=== PATIENT | male | born 1945 | race Caucasian/White ===

== ENCOUNTER 2017-06-30 09:45 | Inpatient (IN) | payer MEDICARE ==
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
[2017-06-30 10:46] LABS: Basophils # (A) 0.1 k/uL (0-0.2); Basophils % (A) 1 %; Eosinophils # (A) 0.5 k/uL (0-0.7); Eosinophils % (A) 5 %; HCT 34.8 % (39.0-53.0); HGB 11.7 gm/dL (13.0-17.5); Lymphocytes # (A) 0.9 k/uL (1.0-4.8); Lymphocytes % (A) 9 %; MCH 26.1 pg (25.0-35.0); MCHC 33.7 g/dL (31.0-37.0); MCV 77.4 fL (80.0-100.0); Mean Platelet Volume 8.5; Monocytes # (A) 0.7 k/uL (0-1.0); Monocytes % (A) 7 %; Neutrophils # (A) 7.9 k/uL (1.3-7.7); Neutrophils % (A) 78 %; Platelet Count 173 k/uL (150-450); Poikilocytosis Slight; RDW 15.3 % (11.5-15.5); WBC 10.2 k/uL (3.8-10.6)
[2017-06-30 10:57] LABS: Albumin 3.2 g/dL (3.5-5.0); Calcium 8.5 mg/dL (8.4-10.2); Potassium 3.2 mmol/L (3.5-5.1); Total Bilirubin 0.4 mg/dL (0.2-1.3); Total Protein 5.6 g/dL (6.3-8.2)
[2017-06-30 11:06] LABS: D-Dimer 0.51 mg/L FEU (<0.60)
--- NOTE | 2017-06-30 11:06 | XR ---
EXAMINATION TYPE: XR chest 2V DATE OF EXAM: 06/30/2017 COMPARISON: 08/16/2015 INDICATION: Chest pain TECHNIQUE: Frontal and lateral views of the chest are obtained. FINDINGS: The heart size is normal. The pulmonary vasculature is normal. Minimal blunting left costophrenic angle may be present. Some atelectasis or possibly minimal fluid m ay be present.. IMPRESSION: 1. Blunting the left costophrenic angle. Correlate for atelectasis versus small left pleural effusion .
[2017-06-30 11:10] LABS: INR 1.9 (<1.2); Partial Thromboplastin Time 33.4 sec (22.0-30.0); Prothrombin Time 17.5 sec (9.0-12.0)
[2017-06-30 11:29] LABS: Creatine Kinase MB 3.2 ng/mL (0.0-2.4); Troponin I 0.248 ng/mL (0.000-0.034)
[2017-06-30] MEDS ORDERED: FUROSEMIDE 10 MG/ML 2 ML VIAL IV ONE (11:43)
[2017-06-30] MEDS ORDERED: NITROGLYCERIN OINT 1 INCH/GM PACKET TOPICAL STA (11:43)
--- NOTE | 2017-06-30 12:03 | US ---
EXAMINATION TYPE: US venous doppler duplex LE RT DATE OF EXAM: 06/30/2017 11:54 AM COMPARISON: NONE CLINICAL HISTORY: Pain. Right toe amputated x 1.5 weeks ago. SOB. SIDE PERFORMED: Right TECHNIQUE: The lower extremity deep venous system is examined utilizing real time linear array sonog christoph with graded compression, doppler sonography and color-flow sonography. VESSELS IMAGED: External Iliac Vein (EIV) Common Femoral Vein Deep Femoral Vein Greater Saphenous Vein * Femoral Vein Popliteal Vein Small Saphenous Vein * Proximal Calf Veins (* superficial vessels) Right Leg: Negative for DVT IMPRESSION: 1. Right lower extremity negative for deep venous thrombosis by ultrasound.
[2017-06-30] MEDS ORDERED: SODIUM CHLORIDE 0.9% 1,000 ML IV ONE (12:43)
[2017-06-30] MEDS ORDERED: NALOXONE 0.4 MG/ML 1 ML VIAL IV PRN (12:43)
[2017-06-30] MEDS ORDERED: ASPIRIN 81 MG PO STA (12:46)
[2017-06-30 13:49] LABS: Glucose,Whole Blood 124 mg/dL (75-99)
[2017-06-30] MEDS: NITROGLYCERIN OINT 1 INCH/GM PACKET TOPICAL SCH ×2 (16:47→22:58)
[2017-06-30] MEDS: FUROSEMIDE 10 MG/ML 2 ML VIAL IV SCH ×2 (16:47→22:58)
[2017-06-30 16:52] LABS: Glucose,Whole Blood 203 mg/dL (75-99)
[2017-06-30 17:33] LABS: Creatine Kinase MB 3.2 ng/mL (0.0-2.4); Troponin I 0.308 ng/mL (0.000-0.034)
[2017-06-30] MEDS ORDERED: HYDROcodone/APAP 5-325MG 1 EACH TAB PO PRN (17:44)
[2017-06-30] MEDS: WARFARIN 1.25 MG TAB PO SCH (18:04)
[2017-06-30] MEDS: INSULIN ASPART 100 UNIT/ML 1 ML 10 ML VIAL SQ SCH ×2 (18:04→22:55)
[2017-06-30] MEDS ORDERED: ARTIFICIAL TEARS-HYPROMELLOSE DROPS 15 ML BTL BOTH EYES PRN (19:34)
[2017-06-30] MEDS ORDERED: TAZOBACTAM IVPB SCH (19:45)
[2017-06-30] MEDS ORDERED: PIPERACILLIN SODIUM IVPB SCH (19:45)
[2017-06-30 21:10] LABS: Glucose,Whole Blood 241 mg/dL (75-99)
[2017-06-30] MEDS: PIPERACILLIN-TAZOBACTAM 3.375 GM in DEXTROSE/WATER 1 50ML.BAG IVPB SCH (21:10)
[2017-06-30] MEDS ORDERED: LORazepam 0.5 MG TAB PO STA (21:30)
--- NOTE | 2017-06-30 22:19 | HP ---
HISTORY AND PHYSICAL CHIEF COMPLAINTS: Shortness of breath as well as leg swelling. HISTORY OF PRESENT ILLNESS: This 71-year-old gentleman with a past medical history of atrial fibrillation, history of CAD, CABG, stent, history of diabetes, hypertension, hyperlipidemia, being followed by Dr. Dodd in [facility], recently had a big toe amputation on the right side at [facility]. Subsequently the patient had a PICC line. The patient is still on IV Zosyn. Currently the patient is complaining of increasing shortness of breath and gaining weight. The patient gained almost 10 pounds of weight in the past couple of weeks to 212 pounds, according to him. Because of increasing difficulty, the patient came to [facility] and was admitted for evaluation and treatment. Initial evaluation the patient was started on Lasix. The patient was admitted for further evaluation and treatment. There is no history of any fever, rigor or chills. No history of headache, loss of consciousness, seizures. PAST MEDICAL HISTORY: 1. History of CAD, CABG. 2. History of atrial fibrillation. 3. History of hypertension. 4. Hyperlipidemia. 5. History of myocardial infarction. 6. History of pneumonia. HOME MEDICATIONS: 1. Norvasc 10 mg p.o. daily. 2. Coumadin 3.75 mg Wednesday, Wednesday, Wednesday, , Wednesday; 2.5 mg Wednesday and Wednesday. 3. Systane 1 drop daily p.r.n. 4. Zosyn 4.5 grams IV q.8. 5. Lantus 30 units subcutaneously daily. 6. NovoLog before meals t.i.d. 7. [place] 5 mg q.6 p.r.n. 8. Vasotec 20 mg p.o. daily. 9. Lipitor 80 mg p.o. daily. 10.Ecotrin 81 mg p.o. daily. 11.Cordarone 100 mg p.o. daily. ALLERGIES: 1. CIPRO. 2. CLINDAMYCIN. 3. BACTRIM. FAMILY HISTORY: History of dementia, diabetes mellitus. SOCIAL HISTORY: Previous history of smoking. No current smoking or alcohol intake. REVIEW OF SYSTEMS: ENT: No diminished hearing. No diminished vision. CARDIOVASCULAR SYSTEM: As mentioned earlier. RESPIRATORY SYSTEM: As mentioned earlier. GI: No nausea, vomiting. : No dysuria or retention. NERVOUS SYSTEM: No numbness, weakness. ALLERGY/IMMUNOLOGY: No asthma, hayfever. MUSCULOSKELETAL: As mentioned earlier. HEMATOLOGY/ONCOLOGY: No history of anemia. ENDOCRINE: As mentioned earlier. CONSTITUTIONAL: As mentioned earlier. DERMATOLOGY: Negative. RHEUMATOLOGY: Negative. PSYCHIATRY: As mentioned earlier. PHYSICAL EXAMINATION: Patient alert, oriented x3. The pulse is 78, blood pressure 149/75, respiration 18, temperature normal, pulse ox 96% on room air. HEENT: Conjunctivae normal. Oral mucosa moist. NECK: Jugular venous distention at the root of the neck. CARDIOVASCULAR SYSTEM: S1, S2 muffled. No S3. No S4. RESPIRATORY SYSTEM: Breath sounds diminished at the bases. A few scattered rhonchi. No crackles. ABDOMEN: Soft, non-tender, obese. No mass palpable. LEGS: No edema. No swelling. Status post right big toe amputation. NERVOUS SYSTEM: Higher functions as mentioned earlier. Moves all 4 limbs. No focal motor or sensory deficit. LYMPHATICS: No lymph node palpable in neck, axillae or groin. SKIN: No ulcer, rash, bleeding. PICC line present on the left upper arm. LABS: WBC 10.2, hemoglobin 11.7. INR is 1.9 and creatinine is 1.88. NT proBNP is 4820. ASSESSMENT: 1. Congestive heart failure, acute exacerbation; ejection fraction unknown. 2. History of osteomyelitis of the toe. 3. Troponin 0.308, possible acute [id number] myocardial infarction. 4. Increased creatinine with chronic kidney disease, stage III. 5. History of recent right big toe amputation. 6. Status post left upper arm PICC line. 7. Coumadin monitoring. 8. Hypokalemia, mild. 9. Anemia, normocytic, chronic. 10.Atrial fibrillation. 11.History of coronary artery disease. 12.History of diabetes mellitus, type 2. 13.Hypertension. 14.Hyperlipidemia. 15.History of pneumonia. 16.Peripheral neuropathy, bilateral feet. 17.History of diverticular disease. 18.History of nicotine dependence. 19.FULL CODE. RECOMMENDATIONS AND DISCUSSION: In this 71-year-old gentleman who presented with multiple complex medical issues., we will we will monitor the patient closely, continue the current medications, continue with symptomatic treatment. I would recommend resuming the IV antibiotics, PICC line and IV diuretics. Monitor fluid/electrolyte balance closely. I would also recommend cardiology and nephrology consultations. I would recommend close followup at [facility] regarding the amputation of the big toe. Otherwise, prognosis guarded. Further recommendations to follow. A copy of this dictation is being forwarded to Dr. Dodd, who is the primary physician. MMRENETTAL / CANDICEN: [id number] / MTDD
[2017-06-30 22:58] LABS: Creatine Kinase MB 3.3 ng/mL (0.0-2.4); Troponin I 0.252 ng/mL (0.000-0.034)
[2017-07-01] MEDS: PIPERACILLIN-TAZOBACTAM 3.375 GM in DEXTROSE/WATER 1 50ML.BAG IVPB SCH ×3 (04:27→21:04)
[2017-07-01] MEDS: NITROGLYCERIN OINT 1 INCH/GM PACKET TOPICAL SCH ×3 (05:02→15:37)
[2017-07-01 06:04] LABS: Glucose,Whole Blood 237 mg/dL (75-99)
[2017-07-01] MEDS: INSULIN ASPART 100 UNIT/ML 1 ML 10 ML VIAL SQ SCH ×4 (06:09→21:04)
[2017-07-01 06:27] LABS: Basophils # (A) 0.1 k/uL (0-0.2); Basophils % (A) 1 %; Eosinophils # (A) 0.4 k/uL (0-0.7); Eosinophils % (A) 5 %; HGB 11.9 gm/dL (13.0-17.5); Lymphocytes % (A) 11 %; MCH 26.2 pg (25.0-35.0); MCHC 34.1 g/dL (31.0-37.0); MCV 76.7 fL (80.0-100.0); Mean Platelet Volume 8.4; Microcytosis Slight; Monocytes # (A) 0.7 k/uL (0-1.0); Monocytes % (A) 8 %; Neutrophils # (A) 6.4 k/uL (1.3-7.7); Neutrophils % (A) 74 %; Platelet Count 186 k/uL (150-450); Poikilocytosis Slight; RBC 4.56 m/uL (4.30-5.90); RDW 15.2 % (11.5-15.5); WBC 8.7 k/uL (3.8-10.6)
[2017-07-01 06:28] LABS: INR 2.1 (<1.2); Prothrombin Time 18.7 sec (9.0-12.0)
[2017-07-01 06:52] LABS: Calcium 8.7 mg/dL (8.4-10.2); Potassium 3.3 mmol/L (3.5-5.1)
[2017-07-01] MEDS: INSULIN DETEMIR 100 UNIT/ML 10 ML VIAL SQ SCH (08:24)
[2017-07-01] MEDS: FUROSEMIDE 10 MG/ML 2 ML VIAL IV SCH (08:25)
[2017-07-01] MEDS: ASPIRIN 81 MG PO SCH (08:25)
[2017-07-01] MEDS: ATORVASTATIN 80 MG TAB PO SCH (08:25)
[2017-07-01] MEDS: amLODIPine 10 MG TAB PO SCH (08:25)
[2017-07-01] MEDS: LISINOPRIL 20 MG TAB PO SCH (08:25)
[2017-07-01] MEDS: AMIODARONE 100 MG TAB PO SCH (08:25)
[2017-07-01] MEDS ORDERED: ASPIRIN 325 MG TAB PO SCH (09:00)
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
[2017-07-01 11:31] VITALS: BMI 31.1
[2017-07-01 12:09] LABS: Glucose,Whole Blood 218 mg/dL (75-99)
[2017-07-01] MEDS: MULTIVITAMINS, THERA 1 EACH TAB PO SCH (12:23)
[2017-07-01 12:30] LABS: Hemoglobin A1C 7.3 % (4.0-6.0)
--- NOTE | 2017-07-01 14:14 | CONS ---
CONSULTATION DATE OF CONSULTATION: 07/01/2017. REASON FOR CONSULT: Renal failure. HISTORY OF PRESENT ILLNESS: Patient is a 71-year-old male who was admitted to the hospital with complaints of shortness of breath and worsening lower extremity edema, which had been going on over the past 2-3 days. The patient stated he had put on a lot of weight over the last 2 weeks. Pt also states he recently had trimming of nails on R foot by podiatry and developed increased redness around his toes. He denies any fever, chills, nausea, vomiting. He did have some cough. No abdominal pain or diarrhea. 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 He is baseline creatinine is about 1.6 mg/dL. He is being diuresed. He is maintained on Lasix 20 mg IV q.8 hours. He states he is feeling better. He is also maintained on lisinopril 40 mg daily. Patient is voiding well. He is going on his own. PAST MEDICAL HISTORY: CKD stage III secondary to nephrosclerosis, hypertension, atrial fibrillation, coronary artery disease, history of VT, history of pneumonia, hyperlipidemia. MEDICATIONS: Medications at home prior to admission included Norvasc, Coumadin, Zosyn, insulin, [place], Vasotec, Lipitor, Ecotrin, Cordarone. ALLERGIES: Include Cipro, clindamycin, Bactrim. FAMILY HISTORY: Noncontributory. SOCIAL HISTORY: Patient is a former smoker. No history of drug abuse or alcohol abuse. REVIEW OF SYSTEMS: As per HPI. Other systems negative. EXAMINATION: Patient is comfortable, awake, not in any acute distress. Blood pressure is 132 /62, heart rate 80 per minute. He is afebrile. Examination of the heart. S1, S2. Examination lungs: Decreased breath sounds bases. Bilateral basal crackles are heard. Abdomen is soft, nontender. Examination lower extremity shows edema 1+ bilaterally. MANAGER PROVIDER RELATIONS exam is grossly intact. Patient moving all 4 extremities. LAB: Show sodium 143, potassium 3.3, chloride 104, BUN 22, serum creatinine 1.96. Troponin was 0.252. Hemoglobin 11.9 g/dL. We do not have her UA. Chest x-ray shows left pleural effusion. ASSESSMENT: 1. Acute kidney injury mainly cardiorenal, maintained on Lasix 20 mg IV q.8 hours. I will change it to 40 mg q.12 hours. Repeat labs in a.m. The patient is maintained on a good dose of FRAN inhibitors. His blood pressure is not too low and we can continue the same dose of lisinopril for now. As outpatient, patient has been taken off of FRAN inhibitors secondary to hypotension and acute kidney injury. 2. Chronic kidney disease stage III secondary to nephrosclerosis. Baseline creatinine about 1.6 mg/dL. 3. History of atrial fibrillation maintained on anticoagulation with controlled ventricular response. 4. Coronary artery disease, history of coronary artery bypass surgery. 5. Cellulitis, right foot, maintained on IV antibiotics in the form on Zosyn. PLAN: Continue the IV antibiotics. Change Lasix to 40 IV q.12h. Repeat labs in a.m. Check urinalysis and may continue with the FRAN inhibitors for now. MMODL / IJN: [id number] / MTDD
--- NOTE | 2017-07-01 15:14 | PN ---
PROGRESS NOTE DATE OF SERVICE: 07/01/2017 INTERVAL HISTORY: This is a 71-year-old gentleman who was admitted with shortness of breath with CHF acute exacerbation, also had a history of toe osteomyelitis and surgery at recently. The patient also had renal failure. Nephrology and Cardiology are following the patient closely. Amiodarone is being reduced by 200 mg daily by Cardiology. The patient is on IV diuretics and IV antibiotics. No chest pain. No palpitations. No fever. REVIEW OF SYSTEMS: CARDIOVASCULAR: No angina or palpitation. RESPIRATION: As mentioned earlier. GI: As mentioned earlier. : As mentioned earlier. NERVOUS SYSTEM: No focal deficits. CURRENT MEDICATIONS ARE REVIEWED AND INCLUDE: 1. [place] 5 mg q.8 p.r.n. 2. Cordarone 100 mg p.o. daily. 3. Norvasc 10 mg p.o. daily. 4. Aspirin 81 mg. 5. Lipitor 80 mg. 6. Lasix 40 mg IV b.i.d. 7. NovoLog a.c. and at bedtime. 8. Levemir 30 subcu daily. 9. Zestril 40 mg daily. 10.Multivitamin 1 p.o. daily. 11.Narcan. 12.Nitro-Bid. 13.Zosyn 3.37 IV q.8. 14.Coumadin 3.7 and 2.5 mg. PHYSICAL EXAM: Patient is alert and oriented x3. Pulse 80, blood pressure is 130/62, respiration 18, temperature is 96 degrees, pulse ox 92% on room air. HEENT: Conjunctivae normal. NECK: No jugular venous dsitension. CARDIOVASCULAR SYSTEM: S1, S2, muffled. RESPIRATORY: Breath sounds diminished at the bases, a few scattered rhonchi, no crackles. Abdomen is soft, nontender. No mass. LEGS: Bilateral leg edema, right foot status post surgery recently. LABS: WBC 8.6, hemoglobin is 11. INR is 2.1. Sodium 143, potassium 3.3. Troponin 0.252. ASSESSMENT: 1. Congestive hear failure acute exacerbation with ejection fraction unknown. 2. History of osteomyelitis of the right big toe, status post amputation. 3. Troponin 0.302, possible acute non-ST elevation myocardial infarction. 4. Increased creatinine with chronic kidney stage III. 5. History of recent right big toe amputation at . 6. Status post left arm PICC line. 7. Coumadin monitoring. 8. Hypokalemia, mild. 9. Anemia normocytic, chronic. 10.Atrial fibrillation. 11.History of coronary artery disease. 12.History of diabetes mellitus type 2. 13.Hypertension. 14.Hyperlipidemia. 15.History of pneumonia. 16.History of peripheral neuropathy of bilateral feet. 17.History of diverticular disease. 18.History of nicotine dependence. 19.FULL CODE. RECOMMENDATION AND DISCUSSION: Recommend to continue current medication, continue with the monitoring and symptomatic treatment. At this time I would recommend continue with the diuretic and IV antibiotics. I would also recommend Infectious Disease evaluation and as well as vascular surgery evaluation with Dr. Looney. Nephrology, and Cardiology all will be following the patient closely. As mentioned earlier, creatinine is 1.96 today. This is rather stable and INR is 2.1. Will monitor the blood sugars, also. Further recommendations to follow. MMODL / IJN: [id number] /
[2017-07-01 15:21] LABS: Appearance,Urine Clear (Clear); Bacteria,Urine Rare /hpf; Bilirubin,Urine Negative (Negative); Blood,Urine Negative (Negative); Color,Urine Yellow; Glucose,Urine (UA) 1+ (Negative); Hyaline Casts,Urine 1 /lpf (0-2); Ketones,Urine Negative (Negative); Leukocyte Esterase,Urine Negative (Negative); Nitrite,Urine Negative (Negative); PH, Urine 5.5 (5.0-8.0); Protein,Urine 2+ (Negative); RBC,Urine 1 /hpf (0-5); Specific Gravity,Urine 1.012 (1.001-1.035); Urobilinogen,Urine <2.0 mg/dL (<2.0); WBC,Urine 4 /hpf (0-5)
[2017-07-01 16:11] LABS: Glucose,Whole Blood 269 mg/dL (75-99)
[2017-07-01] MEDS: WARFARIN 1.25 MG TAB PO SCH (17:03)
[2017-07-01] MEDS: COLLAGENASE 250 UNIT/GM OINTMENT 30 GM TUBE TOPICAL SCH (17:04)
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
--- NOTE | 2017-07-01 17:52 | ECHOF ---
Referral Reason:chf MEASUREMENTS -------- HEIGHT: 175.3 cm WEIGHT: 95.3 kg BP: 147/84 RVIDd: 3.5 cm (< 3.3) IVSd: 1.1 cm (0.6 - 1.1) LVIDd: 5.0 cm (3.9 - 5.3) LVPWd: 1.1 cm (0.6 - 1.1) IVSs: 1.3 cm LVIDs: 4.0 cm LVPWs: 1.3 cm LAESV Index (A-L): 27.61 ml/m Ao Diam: 3.6 cm (2.0 - 3.7) AV Cusp: 1.4 cm (1.5 - 2.6) LA Diam: 4.1 cm (2.7 - 3.8) EPSS: 0.9 cm MV E Shabbir: 1.11 m/s MV DecT: 224 ms MV A Shabbir: 1.44 m/s MV E/A Ratio: 0.77 AV maxP.72 mmHg AV meanP.97 mmHg RAP: 5.00 mmHg RVSP: 20.64 mmHg MV EF SLOPE: 75.75 mm/s (70 - 150) MV EXCURSION: 1.44 cm (> 18.000) FINDINGS -------- Sinus rhythm. This was a technically difficult study with suboptimal views. The left ventricular size is normal. There is mild concentric left ventricular hypertrophy. Overa ll left ventricular systolic function is low-normal with, an EF between 50 - 55 %. The right ventricle is mildly enlarged. Normal LA size by volume 22+/-6 ml/m2. The right atrium is normal in size. 5ml of Lumason was utilized for enhancement of images. Aortic valve is trileaflet and is mildly thickened. There is no evidence of aortic regurgitation. There is no evidence of aortic stenosis. The mitral valve leaflets are mildly thickened. Mild mitral annular calcification present. There is trace to mild mitral regurgitation. Trace tricuspid regurgitation present. Right ventricular systolic pressure is normal at < 35 mmHg. There is no evidence of pulmonary hypertension. Trace/mild (physiologic) pulmonic regurgitation. The aortic root is borderline dilated up to 3.7 cm. Normal inferior vena cava with normal inspiratory collapse consistent with estimated right atrial pre ssure of 5 mmHg. There is a trivial pericardial effusion present. CONCLUSIONS -------- 1. Sinus rhythm. 2. This was a technically difficult study with suboptimal views. 3. The left ventricular size is normal. 4. There is mild concentric left ventricular hypertrophy. 5. Overall left ventricular systolic function is low-normal with, an EF between 50 - 55 %. 6. The right ventricle is mildly enlarged. 7. Normal LA size by volume 22+/-6 ml/m2. 8. 5ml of Lumason was utilized for enhancement of images. 9. Aortic valve is trileaflet and is mildly thickened. 10. The mitral valve leaflets are mildly thickened. 11. Mild mitral annular calcification present. 12. There is trace to mild mitral regurgitation. 13. Trace tricuspid regurgitation present. 14. Right ventricular systolic pressure is normal at < 35 mmHg. 15. There is no evidence of pulmonary hypertension. 16. Trace/mild (physiologic) pulmonic regurgitation. 17. The aortic root is borderline dilated up to 3.7 cm. 18. There is a trivial pericardial effusion present. PEOPLE MANAGER: Ashok Howard RDCS
[2017-07-01 20:51] LABS: Glucose,Whole Blood 247 mg/dL (75-99)
[2017-07-01] MEDS ORDERED: LORazepam 0.5 MG TAB PO STA (20:59)
[2017-07-01] MEDS: FUROSEMIDE 10 MG/ML 4 ML VIAL IV SCH (21:11)
[2017-07-01] MEDS: ERTAPENEM 1 GM in SODIUM CHLORIDE 0.9% 50 ML IVPB SCH (21:54)
[2017-07-01 22:07] LABS: Calcium 8.7 mg/dL (8.4-10.2); Magnesium 1.9 mg/dL (1.6-2.3)
[2017-07-01] MEDS ORDERED: POTASSIUM CHLORIDE ER 20 MEQ TAB.ER PO STA (22:29)
[2017-07-01] MEDS ORDERED: POTASSIUM CHLORIDE 20 MEQ in SODIUM CHLORIDE 0.9% 100 ML IV ONE (23:00)
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
[2017-07-02] MEDS ORDERED: POTASSIUM CHLORIDE 20 MEQ in WATER FOR INJECTION 1 100ML.BAG IVPB ONE (00:30)
[2017-07-02] MEDS: NITROGLYCERIN OINT 1 INCH/GM PACKET TOPICAL SCH ×5 (01:24→22:48)
[2017-07-02 06:03] LABS: Basophils # (A) 0.1 k/uL (0-0.2); Basophils % (A) 1 %; Eosinophils # (A) 0.6 k/uL (0-0.7); Eosinophils % (A) 7 %; HCT 36.8 % (39.0-53.0); HGB 12.1 gm/dL (13.0-17.5); Lymphocytes % (A) 12 %; MCH 25.7 pg (25.0-35.0); MCHC 32.8 g/dL (31.0-37.0); MCV 78.3 fL (80.0-100.0); Mean Platelet Volume 8.3; Monocytes # (A) 0.7 k/uL (0-1.0); Monocytes % (A) 8 %; Neutrophils # (A) 6.1 k/uL (1.3-7.7); Neutrophils % (A) 72 %; Platelet Count 191 k/uL (150-450); Poikilocytosis Slight; RBC 4.69 m/uL (4.30-5.90); RDW 15.4 % (11.5-15.5); WBC 8.5 k/uL (3.8-10.6)
[2017-07-02 06:06] LABS: INR 2.2 (<1.2); Prothrombin Time 20.2 sec (9.0-12.0)
[2017-07-02 06:24] LABS: Potassium 3.9 mmol/L (3.5-5.1)
[2017-07-02] MEDS: INSULIN ASPART 100 UNIT/ML 1 ML 10 ML VIAL SQ SCH ×4 (06:39→21:19)
[2017-07-02 06:41] LABS: Glucose,Whole Blood 210 mg/dL (75-99)
[2017-07-02] MEDS: INSULIN DETEMIR 100 UNIT/ML 10 ML VIAL SQ SCH (09:25)
[2017-07-02] MEDS: amLODIPine 10 MG TAB PO SCH (09:26)
[2017-07-02] MEDS: FUROSEMIDE 10 MG/ML 4 ML VIAL IV SCH (09:26)
[2017-07-02] MEDS: ASPIRIN 81 MG PO SCH (09:26)
[2017-07-02] MEDS: LISINOPRIL 20 MG TAB PO SCH (09:26)
[2017-07-02] MEDS: ATORVASTATIN 80 MG TAB PO SCH (09:26)
[2017-07-02] MEDS: AMIODARONE 100 MG TAB PO SCH (09:26)
--- NOTE | 2017-07-02 09:41 | P.PN ---
Subjective Patient is doing well from a cardiac standpoint he denies any chest discomfort no undue shortness of breath no dizziness or lightheadedness he sitting up comfortably in bed His 2-D echo report was reviewed and shows mild LVH with preserved LV systolic function On examination blood pressure 148/79 mmHg pulse rate in the 70s afebrile 96.9F And neck examination normal heart sounds are normal no murmurs no gallops no rub Breath sounds are clear no rhonchi no crackles Abdomen is soft nontender Extremities: No edema Suggest Continue anticoagulation, continue lisinopril and amlodipine and atorvastatin Diuretics per nephrology Please call as needed From a cardiac standpoint the patient may go home and 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 Objective - Vital Signs Vital signs: Vital Signs Temp 96.9 F L 07/02/17 09:21 Pulse 78 07/02/17 09:21 Resp 16 07/02/17 09:21 BP 149/77 07/02/17 09:21 Pulse Ox 95 07/02/17 09:21 Intake & Output 07/01/17 07/02/17 07/02/17 18:59 06:59 18:59 Intake Total 720 240 Output Total 425 1650 Balance 295 -1650 240 Weight 95.6 kg 89.1 kg Intake: Oral 720 240 Output: Urine 425 1650 Other: # Voids 1 - Labs CBC & Chem 7: 07/02/17 05:26 07/02/17 05:26 Labs: Abnormal Lab Results - Last 24 Hours (Table) 06/30/17 07/01/17 07/01/17 Range/Units 22:03 11:56 15:04 Hgb (13.0-17.5) gm/dL Hct (39.0-53.0) % MCV (80.0-100.0) fL PT (9.0-12.0) sec INR (<1.2) Potassium (3.5-5.1) mmol/L BUN (9-20) mg/dL Creatinine (0.66-1.25) mg/dL Glucose (74-99) mg/dL POC Glucose (mg/dL) 218 H (75-99) mg/dL Hemoglobin A1c 7.3 H (4.0-6.0) % Urine Protein 2+ H (Negative) Urine Glucose (UA) 1+ H (Negative) Urine Bacteria Rare H (None) /hpf 07/01/17 07/01/17 07/01/17 Range/Units 16:03 20:45 21:36 Hgb (13.0-17.5) gm/dL Hct (39.0-53.0) % MCV (80.0-100.0) fL PT (9.0-12.0) sec INR (<1.2) Potassium 3.0 L* (3.5-5.1) mmol/L BUN 28 H (9-20) mg/dL Creatinine 2.30 H (0.66-1.25) mg/dL Glucose 200 H (74-99) mg/dL POC Glucose (mg/dL) 269 H 247 H (75-99) mg/dL Hemoglobin A1c (4.0-6.0) % Urine Protein (Negative) Urine Glucose (UA) (Negative) Urine Bacteria (None) /[facility] 07/02/17 07/02/17 07/02/17 Range/Units 05:26 05:26 05:26 Hgb 12.1 L (13.0-17.5) gm/dL Hct 36.8 L (39.0-53.0) % MCV 78.3 L (80.0-100.0) fL PT 20.2 H (9.0-12.0) sec INR 2.2 H (<1.2) Potassium (3.5-5.1) mmol/L BUN 26 H (9-20) mg/dL Creatinine 2.20 H (0.66-1.25) mg/dL Glucose 207 H (74-99) mg/dL POC Glucose (mg/dL) (75-99) mg/dL Hemoglobin A1c (4.0-6.0) % Urine Protein (Negative) Urine Glucose (UA) (Negative) Urine Bacteria (None) /[facility] 07/02/17 Range/Units 06:37 Hgb (13.0-17.5) gm/dL Hct (39.0-53.0) % MCV (80.0-100.0) fL PT (9.0-12.0) sec INR (<1.2) Potassium (3.5-5.1) mmol/L BUN (9-20) mg/dL Creatinine (0.66-1.25) mg/dL Glucose (74-99) mg/dL POC Glucose (mg/dL) 210 H (75-99) mg/dL Hemoglobin A1c (4.0-6.0) % Urine Protein (Negative) Urine Glucose (UA) (Negative) Urine Bacteria (None) /hpf
--- NOTE | 2017-07-02 10:03 | XR ---
EXAMINATION TYPE: XR chest 1V DATE OF EXAM: 07/02/2017 COMPARISON: 06/30/2017 HISTORY: Congestive heart failure with current shortness of breath TECHNIQUE: Single frontal view of the chest is obtained. FINDINGS: There is increased confluence of previously seen linear retrocardiac opacity with obscurat ion of the left costophrenic angle. No pulmonary vascular congestion is seen. Patient rotation shifti ng the mediastinum to the left. Post CABG changes are noted. Extensive degenerative changes of the ri ght acromioclavicular joint are seen. IMPRESSION: Increasing confluence of a retrocardiac opacity that could relate to atelectasis or pneu monia in the appropriate clinical setting.
[2017-07-02 12:12] LABS: Glucose,Whole Blood 207 mg/dL (75-99)
[2017-07-02] MEDS: MULTIVITAMINS, THERA 1 EACH TAB PO SCH (12:42)
--- NOTE | 2017-07-02 14:21 | PN ---
PROGRESS NOTE Patient is seen for followup for acute kidney injury on top of chronic kidney disease. He was admitted with right foot cellulitis as well as a fluid overload. Currently, patient is maintained on Lasix 40 mg IV q.12 hours. He has been evaluated by ID and is maintained on antibiotics and local wound care. He is on ertapenem. This morning patient states he is feeling better. His repeat chest x-ray from today shows increased retrocardiac opacity. No pulmonary vascular congestion was noted. PHYSICAL EXAMINATION: Today, blood pressure is 149/77, heart rate 78 per minute. Patient is afebrile. Examination of the heart, S1, S2. Examination of the lungs, bilateral breath sounds are heard. Abdomen is soft, nontender. Examination of the lower extremities shows trace edema bilaterally. Right foot is currently wrapped. LABS: Show sodium 143, potassium 3.9, chloride 103, CO2 is 29, BUN 26, serum creatinine 2.2, hemoglobin 12.1 g/dL, pre-albumin was 13. ASSESSMENT: 1. Acute kidney injury, mainly cardiorenal, currently stable. Repeat chest x-ray does not show significant volume overload. I will change the Lasix to p.o. 2. Right foot cellulitis maintained on ertapenem, being followed by ID and Vascular Surgery. 3. Chronic kidney disease, NKF stage III secondary to nephrosclerosis and atheromatous renovascular disease with baseline creatinine about 1.6 mg/dL. Currently maintained on FRAN inhibitors. Blood pressure is not low. We can continue the current dose of lisinopril. 4. Coronary artery disease with history of coronary artery bypass surgery. 5. History of atrial fibrillation maintained on anticoagulation with controlled ventricular response. PLAN: Change Lasix to p.o. Continue antibiotics. Repeat labs in a.m. Continue to avoid nephrotoxic agents. Avoid hypotension and may continue current dose of lisinopril. MMODL / IJN: [id number] /
[2017-07-02] MEDS: COLLAGENASE 250 UNIT/GM OINTMENT 30 GM TUBE TOPICAL SCH (15:49)
--- NOTE | 2017-07-02 16:19 | P.PN ---
Subjective Progress Note Date: 07/02/17 Principal diagnosis: Recent right great toe partial amputation, history of atrial fibrillation, history of coronary artery disease with previous coronary artery bypass grafting surgery and stent placement, diabetes mellitus2, hyperlipidemia, hypertension, history of myocardial infarction, history of pneumonia, chronic kidney disease stage III, history of hepatitis A as a young adult, and BPH. Patient is lying in bed with his head elevated. He is in no acute distress. He denies any complaints of pain or shortness of breath at this time. Maykel wrap' s in place to his right lower leg. Oxygen saturation are 95% on room air. Objective - Vital Signs Vital signs: Vital Signs Temp 96.9 F L 07/02/17 09:21 Pulse 76 07/02/17 11:26 Resp 16 07/02/17 11:26 BP 139/81 07/02/17 11:26 Pulse Ox 95 07/02/17 11:26 Intake & Output 07/01/17 07/02/17 07/02/17 18:59 06:59 18:59 Intake Total 720 476 Output Total 425 1650 600 Balance 295 -1650 -124 Weight 95.6 kg 89.1 kg Intake: Oral 720 476 Output: Urine 425 1650 600 Other: # Voids 1 1 - Constitutional General appearance: Present: cooperative, no acute distress - EENT ENT: Present: hearing grossly normal - Neck Details: Neck is supple, no JVD or lymphadenopathy. - Respiratory Details: Lungs sounds essentially clear throughout, diminished to his bilateral bases. Respirations are symmetrical and nonlabored. Oxygen saturation is our 95% on room air. - Cardiovascular Details: Regular rhythm and rate. S1 and S2 present, negative for S3, gallop or murmur. Remote telemetry showing normal sinus rhythm heart rate 85. No edema present. Maykel wrap and placed to his right lower extremity from his toes to just below his knee. - Gastrointestinal Gastrointestinal Comment(s): Abdomen is soft, nontender and nondistended. Active bowel sounds to all 4 abdominal quadrants. Tolerating oral intake. - Genitourinary Genitourinary Comment(s): Adequate urine output. Voiding clear yellow urine. - Integumentary Integumentary Comment(s): Skin warm and dry and pink. No clubbing or cyanosis. Right great toe wound measuring 1.9 cm in length, 2.0 cm in width, and 0.4 cm in depth. The wound bed is pink with some scant slough. - Neurologic Neurologic: Present: CNII-XII intact - Musculoskeletal Musculoskeletal: Present: gait normal, strength equal bilaterally - Psychiatric Psychiatric: Present: A&O x's 3, appropriate affect, intact judgment & insight - Allied health notes Allied health notes reviewed: nursing - Labs CBC & Chem 7: 07/02/17 05:26 07/02/17 05:26 Labs: Abnormal Lab Results - Last 24 Hours (Table) 07/01/17 07/01/17 07/01/17 Range/Units 16:03 20:45 21:36 Hgb (13.0-17.5) gm/dL Hct (39.0-53.0) % MCV (80.0-100.0) fL PT (9.0-12.0) sec INR (<1.2) Potassium 3.0 L* (3.5-5.1) mmol/L BUN 28 H (9-20) mg/dL Creatinine 2.30 H (0.66-1.25) mg/dL Glucose 200 H (74-99) mg/dL POC Glucose (mg/dL) 269 H 247 H (75-99) mg/dL Prealbumin (18.0-42.0) mg/dL 07/02/17 07/02/17 07/02/17 Range/Units 05:26 05:26 05:26 Hgb 12.1 L (13.0-17.5) gm/dL Hct 36.8 L (39.0-53.0) % MCV 78.3 L (80.0-100.0) fL PT 20.2 H (9.0-12.0) sec INR 2.2 H (<1.2) Potassium (3.5-5.1) mmol/L BUN 26 H (9-20) mg/dL Creatinine 2.20 H (0.66-1.25) mg/dL Glucose 207 H (74-99) mg/dL POC Glucose (mg/dL) (75-99) mg/dL Prealbumin (18.0-42.0) mg/dL 07/02/17 07/02/17 07/02/17 Range/Units 05:26 06:37 11:46 Hgb (13.0-17.5) gm/dL Hct (39.0-53.0) % MCV (80.0-100.0) fL PT (9.0-12.0) sec INR (<1.2) Potassium (3.5-5.1) mmol/L BUN (9-20) mg/dL Creatinine (0.66-1.25) mg/dL Glucose (74-99) mg/dL POC Glucose (mg/dL) 210 H 207 H (75-99) mg/dL Prealbumin 13.0 L (18.0-42.0) mg/dL - Imaging and Cardiology Chest x-ray: report reviewed, image reviewed Assessment and Plan (1) Open wound of right great toe Current Visit: Yes Status: Acute Code(s): S91.101A - UNSP OPEN WOUND OF RIGHT GREAT TOE W/O DAMAGE TO NAIL, INIT SNOMED Code(s): 765574422 (2) Status post amputation of right great toe Current Visit: Yes Status: Acute Code(s): Z89.411 - ACQUIRED ABSENCE OF RIGHT GREAT TOE SNOMED Code(s): 950720768 (3) Diabetes mellitus Current Visit: Yes Status: Chronic Code(s): E11.9 - TYPE 2 DIABETES MELLITUS WITHOUT COMPLICATIONS SNOMED Code(s): 27356658 Plan: 1. We will place the wound VAC to his right great toe wound. Change Wednesday. Continuous mode, 125 mmHg pressure, medium intensity. 2. No weightbearing to his right foot. Physical therapy to evaluate and follow. 3. Follow-up in the wound care center upon discharge with Dr. Looney. 4. Antibiotic management per Dr. Mak recommendations. 5. More recommendations to follow as patient progresses in his care. Time with Patient: Greater than 30
[2017-07-02 16:30] LABS: Glucose,Whole Blood 279 mg/dL (75-99)
[2017-07-02] MEDS: WARFARIN 2.5 MG TAB PO SCH (17:50)
--- NOTE | 2017-07-02 18:12 | PN ---
PROGRESS NOTE DATE OF SERVICE: 07/02/2017 Patient resting comfortably in bed. No complaints of uncontrolled pain. Enquiring about possible discharge plans. VITAL SIGNS: Temperature of 96.9, pulse 76, respirations 16, blood pressure 139/81, O2 saturation 95%. PHYSICAL EXAMINATION: CONSTITUTIONAL: Patient is awake, alert, oriented x3. He is in no acute distress. HEENT: Atraumatic, normocephalic. Pupils equal and reactive to light. Extraocular movements intact. Buccal mucosa is fair. NECK: Supple. No goiter or lymphadenopathy. JVD is negative. No carotid bruit heard. Lungs are clear to auscultate. No rales, rhonchi, or wheezes. Heart is regular rate and rhythm without any murmurs gallop rhythm. ABDOMEN: Soft, nontender, nondistended. Bowel sounds positive. EXTREMITIES: No edema, clubbing or cyanosis. The patient's right lower extremity is in an Maykel wrap from his toes just below the knees. NEUROLOGICAL EXAMINATION: The patient is awake, alert, oriented x3. No gross motor or sensory deficit. Skin is warm, dry. Right great toe ulcer. REVIEW OF SYSTEM: CONSTITUTIONAL: Patient denies any headaches, lightheadedness, dizziness. GI: No nausea, vomiting, diarrhea. CARDIOVASCULAR: No chest pain or angina. RESPIRATORY SYSTEM: No shortness of breath. NERVOUS SYSTEM: No focal deficit. CURRENT MEDICATIONS: 1. [place] 5 mg p.o. q.8 hours p.r.n. 2. Cordarone 100 mg daily. 3. Norvasc 20 mg daily. 4. Aspirin 81 daily. 5. Lipitor 80 mg daily. 6. Lisinopril 40 mg b.i.d. 7. Levemir 30 units subcu daily. 8. Zestril 40 mg daily. 9. Multivitamin 1 tablet daily. 10.Zosyn 3.375 mg IV q.8 hours. 11.Coumadin 3.7 alternating with 2.5 mg daily. LABS AND X-RAY DATA: Done shows CBC: White blood count of 8.5, hemoglobin 12.1, hematocrit 36.8, and platelet count of 191. INR 2.2. Chemical profile: Sodium 140, potassium 3.9, chloride 103, bicarb 29, BUN 26, creatinine 2.2, glucose 207. ASSESSMENT: 1. Acute exacerbation congestive heart failure. 2. History of right big toe osteomyelitis status post amputation. 3. Elevated troponin, possible non ST elevation myocardial infarction. 4. Acute on chronic renal failure. 5. Open wound right great toe, status post recent amputation at [facility]. 6. Hypokalemia. 7. Normocytic anemia. 8. Atrial fibrillation. PLAN: Plan is to continue IV antibiotics. Infectious Disease is following. Patient is being set up on a wound VAC. No weightbearing on the right toe. Physical therapy is following. The patient is recommended to follow up with Dr[facility] Dr. Mak is managing antibiotics waiting for final culture and sensitivity report for final recommendations. MMODL / IJN: [id number] /
[2017-07-02 20:54] LABS: Glucose,Whole Blood 288 mg/dL (75-99)
[2017-07-02] MEDS ORDERED: LORazepam 1 MG TAB PO STA (21:12)
[2017-07-02] MEDS: ERTAPENEM 1 GM in SODIUM CHLORIDE 0.9% 50 ML IVPB SCH (21:23)
--- NOTE | 2017-07-02 22:40 | P.PN ---
Subjective Progress Note Date: 07/02/17 Principal diagnosis: Diabetic foot ulcer 71-year-old male presents to Hospital for ongoing difficulties with his right foot. He's been having difficulties with swelling and ulceration to the right great toe. He was seen at outside facility underwent a distal amputation of the great toe and was been treated with outpatient intravenous antibiotic therapy with Zosyn. The to a worsening drainage and he had increasing amounts of swelling to the leg and consequently presented to the emergency center and he was admitted with concerns to the worsening diabetic foot infection and osteomyelitis. Data from the outside hospital has been requested. The patient relates that he is concerned about further foot loss, which is one of the reasons he presented back to hospital. He has had some fever without chills or rigors. 07/12/2017 reveals the patient to be feeling better. Has been seen by his vascular surgeon in the negative pressure therapy system has been initiated. He is comfortable and is looking forward to discharge soon. The data from the outside hospital reviewed and only coag-negative staph was found from the culture, but pathology did confirm osteomyelitis to the removed right great toe. Objective - Vital Signs Vital signs: Vital Signs Temp 96.6 F L 07/02/17 16:00 Pulse 74 07/02/17 16:00 Resp 16 07/02/17 16:00 BP 139/73 07/02/17 16:00 Pulse Ox 93 L 07/02/17 16:00 Intake & Output 07/02/17 07/02/17 07/03/17 06:59 18:59 06:59 Intake Total 956 Output Total 1650 900 200 Balance -1650 56 -200 Weight 89.1 kg Intake: Oral 956 Output: Urine 1650 900 200 Other: # Voids 1 1 # Bowel Movements 0 - Exam 71-year-old male who is modestly comfortable at this time HEENT: Anicteric conjunctiva are pink and moist nasal mucosa grossly intact without significant lesions, there is no thrush. Neck: The neck is supple without significant lymphadenopathy or thyromegaly. Lungs: Symmetrical air entry is noted expiratory wheezes are scattered with no zena bronchial sounds normal dullness or egophony Heart: Irregular with an audible S1 and S2 positive S4 no distinct murmur click or rub PMI is nondisplaced Abdomen: Mildly obese, Positive bowel sounds soft and nontender without palpable masses or organomegaly. There was no guarding or rebound. Extremities: The upper extremities have excellent pulses they are symmetric, no significant petechiae or telangiectasia. No splinter hemorrhages were noted. Lower extremity reveal evidence of the diminished pulses bilaterally dorsalis pedis and posterior tibialis. Feet are cool but not cold. There is evidence of the distal toe amputation to the right great toe. There is evidence of the open ulceration from the amputation, the negative pressure therapy is now in place. However there is not significant lower extremity erythema. Neuro: Awake alert oriented to person place and time. There are no acute new gross focal sensory motor deficits. Does have peripheral neuropathy. - Labs CBC & Chem 7: 07/02/17 05:26 07/02/17 05:26 Labs: Abnormal Lab Results - Last 24 Hours (Table) 07/02/17 07/02/17 07/02/17 Range/Units 05:26 05:26 05:26 Hgb 12.1 L (13.0-17.5) gm/dL Hct 36.8 L (39.0-53.0) % MCV 78.3 L (80.0-100.0) fL PT 20.2 H (9.0-12.0) sec INR 2.2 H (<1.2) BUN 26 H (9-20) mg/dL Creatinine 2.20 H (0.66-1.25) mg/dL Glucose 207 H (74-99) mg/dL POC Glucose (mg/dL) (75-99) mg/dL Prealbumin (18.0-42.0) mg/dL 07/02/17 07/02/17 07/02/17 Range/Units 05:26 06:37 11:46 Hgb (13.0-17.5) gm/dL Hct (39.0-53.0) % MCV (80.0-100.0) fL PT (9.0-12.0) sec INR (<1.2) BUN (9-20) mg/dL Creatinine (0.66-1.25) mg/dL Glucose (74-99) mg/dL POC Glucose (mg/dL) 210 H 207 H (75-99) mg/dL Prealbumin 13.0 L (18.0-42.0) mg/dL 07/02/17 07/02/17 Range/Units 16:27 20:52 Hgb (13.0-17.5) gm/dL Hct (39.0-53.0) % MCV (80.0-100.0) fL PT (9.0-12.0) sec INR (<1.2) BUN (9-20) mg/dL Creatinine (0.66-1.25) mg/dL Glucose (74-99) mg/dL POC Glucose (mg/dL) 279 H 288 H (75-99) mg/dL Prealbumin (18.0-42.0) mg/dL Laboratory Results WBC 8.5 k/uL (3.8-10.6) 07/02/17 05:26 RBC 4.69 m/uL (4.30-5.90) 07/02/17 05:26 Hgb 12.1 gm/dL (13.0-17.5) L 07/02/17 05:26 Hct 36.8 % (39.0-53.0) L 07/02/17 05:26 MCV 78.3 fL (80.0-100.0) L 07/02/17 05:26 MCH 25.7 pg (25.0-35.0) 07/02/17 05:26 MCHC 32.8 g/dL (31.0-37.0) 07/02/17 05:26 RDW 15.4 % (11.5-15.5) 07/02/17 05:26 Plt Count 191 k/uL (150-450) 07/02/17 05:26 Neutrophils % 72 % 07/02/17 05:26 Lymphocytes % 12 % 07/02/17 05:26 Monocytes % 8 % 07/02/17 05:26 Eosinophils % 7 % 07/02/17 05:26 Basophils % 1 % 07/02/17 05:26 Neutrophils # 6.1 k/uL (1.3-7.7) 07/02/17 05:26 Lymphocytes # 1.0 k/uL (1.0-4.8) 07/02/17 05:26 Monocytes # 0.7 k/uL (0-1.0) 07/02/17 05:26 Eosinophils # 0.6 k/uL (0-0.7) 07/02/17 05:26 Basophils # 0.1 k/uL (0-0.2) 07/02/17 05:26 Poikilocytosis Slight 07/02/17 05:26 Microcytosis Slight 07/01/17 06:07 PT 20.2 sec (9.0-12.0) H 07/02/17 05:26 INR 2.2 (<1.2) H 07/02/17 05:26 APTT 33.4 sec (22.0-30.0) H 06/30/17 10:29 D-Dimer 0.51 mg/L FEU (<0.60) 06/30/17 10:29 Sodium 143 mmol/L (137-145) 07/02/17 05:26 Potassium 3.9 mmol/L (3.5-5.1) 07/02/17 05:26 Chloride 103 mmol/L (98-107) 07/02/17 05:26 Carbon Dioxide 29 mmol/L (22-30) 07/02/17 05:26 Anion Gap 11 mmol/L 07/02/17 05:26 BUN 26 mg/dL (9-20) H 07/02/17 05:26 Creatinine 2.20 mg/dL (0.66-1.25) H 07/02/17 05:26 Est GFR (CKD-EPI)AfAm 33 (>60 ml/min/1.73 sqM) 07/02/17 05:26 Est GFR (CKD-EPI)NonAf 29 (>60 ml/min/1.73 sqM) 07/02/17 05:26 Glucose 207 mg/dL (74-99) H 07/02/17 05:26 POC Glucose (mg/dL) 288 mg/dL (75-99) H 07/02/17 20:52 POC Glu Sales Performance Analyst ID Sheela Martinez 07/02/17 20:[address] Glu mg/dL 163 06/30/17 22:03 Hemoglobin A1c 7.3 % (4.0-6.0) H 06/30/17 22:03 Calcium 9.0 mg/dL (8.4-10.2) 07/02/17 05:26 Magnesium 1.9 mg/dL (1.6-2.3) 07/01/17 21:36 Total Bilirubin 0.4 mg/dL (0.2-1.3) 06/30/17 10:29 AST 22 U/L (17-59) 06/30/17 10:29 ALT 31 U/L (21-72) 06/30/17 10:29 Alkaline Phosphatase 74 U/L (38-126) 06/30/17 10:29 Total Creatine Kinase 184 U/L (55-170) H 06/30/17 22:03 CK-MB (CK-2) 3.3 ng/mL (0.0-2.4) H* 06/30/17 22:03 CK-MB (CK-2) Rel Index 1.8 06/30/17 22:03 Troponin I 0.252 ng/mL (0.000-0.034) H* 06/30/17 22:03 NT-Pro-B Natriuret Pep 4820 pg/mL 06/30/17 10:29 Total Protein 5.6 g/dL (6.3-8.2) L 06/30/17 10:29 Albumin 3.2 g/dL (3.5-5.0) L 06/30/17 10:29 Prealbumin 13.0 mg/dL (18.0-42.0) L 07/02/17 05:26 Triglycerides 141 mg/dL (<150) 07/01/17 06:07 Cholesterol 126 mg/dL (<200) 07/01/17 06:07 LDL Cholesterol, Calc 73 mg/dL (0-99) 07/01/17 06:07 HDL Cholesterol 25 mg/dL (40-60) L 07/01/17 06:07 Urine Color Yellow 07/01/17 15:04 Urine Appearance Clear (Clear) 07/01/17 15:04 Urine pH 5.5 (5.0-8.0) 07/01/17 15:04 Ur Specific [place] 1.012 (1.001-1.035) 07/01/17 15:04 Urine Protein 2+ (Negative) H 07/01/17 15:04 Urine Glucose (UA) 1+ (Negative) H 07/01/17 15:04 Urine Ketones Negative (Negative) 07/01/17 15:04 Urine Blood Negative (Negative) 07/01/17 15:04 Urine Nitrite Negative (Negative) 07/01/17 15:04 Urine Bilirubin Negative (Negative) 07/01/17 15:04 Urine Urobilinogen <2.0 mg/dL (<2.0) 07/01/17 15:04 Ur Leukocyte Esterase Negative (Negative) 07/01/17 15:04 Urine RBC 1 /hpf (0-5) 07/01/17 15:04 Urine WBC 4 /hpf (0-5) 07/01/17 15:04 Urine Bacteria Rare /hpf (None) H 07/01/17 15:04 Hyaline Casts 1 /lpf (0-2) 07/01/17 15:04 Assessment and Plan (1) CHF (congestive heart failure) Current Visit: Yes Status: Acute Code(s): I50.9 - HEART FAILURE, UNSPECIFIED SNOMED Code(s): 19335187 (2) Diabetes mellitus Current Visit: Yes Status: Chronic Code(s): E11.9 - TYPE 2 DIABETES MELLITUS WITHOUT COMPLICATIONS SNOMED Code(s): 89350612 (3) Status post amputation of right great toe Narrative/Plan: 71-year-old male who presents to hospital with increasing shortness of breath approximately a 10 pound weight gain. With his known history of underlying coronary disease and congestive heart failure he was having concerns to worsening congestive heart failure as well as worsening to the ulcerations the right great toe. 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 That is evidence of the complicated ulceration to the right great toe status post partial amputation. We have requested. Cultures from the outside hospital. He is noticed to have volume overload and is also having some thrombocytopenia. I'm concerned that the outpatient antibiotics therapy of Zosyn can be contributing to both by the sodium load as well as the piperacillin induced thrombocytopenia that is common. This was changed to Invanz for now until we have further data. Local wound care with Santyl dressing will continue on a daily basis. Elevate the limb while he is at rest. As noted being treated for congestive heart failure which also be very helpful for the ulceration. This potentially be a candidate for SNAP VAC at discharge. Multivitamin with zinc is added and we'll check his protein status. 07/02/2017 reveals the patient to be improved, denies pain and feels improved. Is looking forward to discharge to home. The outside hospital data is reviewed. There is no compelling evidence that Zosyn was the drug of choice and consequently he has been transitioned to Invanz which will allow once a day dosing, lower volume and less thrombocytopenia. This is being put through his home infusion company, [employer]. Likely will be discharged home tomorrow. Standard negative pressure therapy is being considered and applied today. PICC line are in place. We'll follow the wound healing center after discharge. The selective at his weightbearing to the right foot to just he'll touch with balance Current Visit: Yes Status: Acute Code(s): Z89.411 - ACQUIRED ABSENCE OF RIGHT GREAT TOE SNOMED Code(s): 980547403
[2017-07-03 06:02] LABS: Glucose,Whole Blood 147 mg/dL (75-99)
[2017-07-03] MEDS: NITROGLYCERIN OINT 1 INCH/GM PACKET TOPICAL SCH ×4 (06:27→23:08)
[2017-07-03] MEDS: INSULIN ASPART 100 UNIT/ML 1 ML 10 ML VIAL SQ SCH ×4 (06:28→21:03)
[2017-07-03 06:30] LABS: Basophils # (A) 0.1 k/uL (0-0.2); Basophils % (A) 1 %; Eosinophils # (A) 0.7 k/uL (0-0.7); Eosinophils % (A) 7 %; HCT 37.1 % (39.0-53.0); HGB 12.3 gm/dL (13.0-17.5); Lymphocytes # (A) 1.5 k/uL (1.0-4.8); Lymphocytes % (A) 14 %; MCH 25.7 pg (25.0-35.0); MCHC 33.1 g/dL (31.0-37.0); MCV 77.7 fL (80.0-100.0); Mean Platelet Volume 8.8; Monocytes # (A) 0.7 k/uL (0-1.0); Monocytes % (A) 7 %; Neutrophils % (A) 69 %; Platelet Count 214 k/uL (150-450); Poikilocytosis Slight; RBC 4.77 m/uL (4.30-5.90); RDW 15.5 % (11.5-15.5)
[2017-07-03 06:38] LABS: INR 2.1 (<1.2); Prothrombin Time 19.2 sec (9.0-12.0)
[2017-07-03 07:07] LABS: Potassium 3.5 mmol/L (3.5-5.1)
[2017-07-03] MEDS: COLLAGENASE 250 UNIT/GM OINTMENT 30 GM TUBE TOPICAL SCH (08:51)
[2017-07-03] MEDS: ASPIRIN 81 MG PO SCH (08:51)
[2017-07-03] MEDS: AMIODARONE 100 MG TAB PO SCH (08:52)
[2017-07-03] MEDS: ATORVASTATIN 80 MG TAB PO SCH (08:52)
[2017-07-03] MEDS: amLODIPine 10 MG TAB PO SCH (08:52)
[2017-07-03] MEDS: INSULIN DETEMIR 100 UNIT/ML 10 ML VIAL SQ SCH (08:52)
[2017-07-03] MEDS: LISINOPRIL 20 MG TAB PO SCH (08:52)
--- NOTE | 2017-07-03 09:25 | P.PN ---
Subjective Progress Note Date: 07/03/17 Seen and examined for the follow-up of acute kidney injury. Right foot cellulitis currently with the wound VAC. Objective - Vital Signs Vital signs: Vital Signs Temp 97.3 F L 07/03/17 08:00 Pulse 71 07/03/17 08:00 Resp 17 07/03/17 08:00 BP 150/70 07/03/17 08:00 Pulse Ox 94 L 07/03/17 08:00 Intake & Output 07/02/17 07/03/17 07/03/17 18:59 06:59 18:59 Intake Total 956 Output Total 900 700 Balance 56 -700 Weight 89.1 kg 96 kg Intake: Oral 956 Output: Urine 900 700 Other: # Voids 1 # Bowel Movements 0 - Exam Lying in bed no acute distress S1 and S2 heard Lungs clear to auscultation Abdomen soft bowel sounds present Trace edema and right toe wound VAC - Labs CBC & Chem 7: 07/03/17 06:04 07/03/17 06:04 Labs: Abnormal Lab Results - Last 24 Hours (Table) 07/02/17 07/02/17 07/02/17 Range/Units 05:26 11:46 16:27 Hgb (13.0-17.5) gm/dL Hct (39.0-53.0) % MCV (80.0-100.0) fL PT (9.0-12.0) sec INR (<1.2) BUN (9-20) mg/dL Creatinine (0.66-1.25) mg/dL Glucose (74-99) mg/dL POC Glucose (mg/dL) 207 H 279 H (75-99) mg/dL Prealbumin 13.0 L (18.0-42.0) mg/dL 07/02/17 07/03/17 07/03/17 Range/Units 20:52 05:57 06:04 Hgb 12.3 L (13.0-17.5) gm/dL Hct 37.1 L (39.0-53.0) % MCV 77.7 L (80.0-100.0) fL PT (9.0-12.0) sec INR (<1.2) BUN (9-20) mg/dL Creatinine (0.66-1.25) mg/dL Glucose (74-99) mg/dL POC Glucose (mg/dL) 288 H 147 H (75-99) mg/dL Prealbumin (18.0-42.0) mg/dL 07/03/17 07/03/17 Range/Units 06:04 06:04 Hgb (13.0-17.5) gm/dL Hct (39.0-53.0) % MCV (80.0-100.0) fL PT 19.2 H (9.0-12.0) sec INR 2.1 H (<1.2) BUN 27 H (9-20) mg/dL Creatinine 2.03 H (0.66-1.25) mg/dL Glucose 150 H (74-99) mg/dL POC Glucose (mg/dL) (75-99) mg/dL Prealbumin (18.0-42.0) mg/dL Assessment and Plan Assessment: Impression: 1 acute kidney injury secondary to cardiorenal syndrome currently stable. #2 CKD stage III baseline creatinine 1.6. Secondary to nephrosclerosis. #3 coronary artery disease status post CABG. #4 A. fib on anticoagulation. #5 metabolic alkalosis. #6 mild hyponatremia. Recommendations: #1 renal function stable monitor. Continue on current dose lisinopril. #2 avoid nephrotoxic agents and hypotensive episodes. #3 currently off diuretics monitor. #4 repeat labs in the morning.
[2017-07-03] MEDS: MULTIVITAMINS, THERA 1 EACH TAB PO SCH (11:15)
[2017-07-03 11:28] LABS: Glucose,Whole Blood 234 mg/dL (75-99)
--- NOTE | 2017-07-03 17:07 | PN ---
PROGRESS NOTE DATE OF SERVICE: 07/03/2017 Patient resting comfortably in bed, claims he would like to go home, but knows that Dr. Mak is in the process of making arrangements for IV antibiotic treatment at home. The patient's is at bedside. GENERAL: Patient is awake, alert, oriented. He is in no acute distress. VITAL SIGNS: Temperature 97.3, pulse 71, respirations 17, blood pressure 150/70, O2 saturation 94%. HEENT: Atraumatic, normocephalic. Pupils equal and react to light. Extraocular movements intact. Buccal mucosa is fair. Neck is supple. No goiter, lymphadenopathy. JVD is negative. No carotid bruit heard. Lungs are clear to auscultate. No rales, rhonchi or wheezes. Heart is regular rate and rhythm without any murmurs, gallop rhythm. Abdomen is soft, obese, nontender, nondistended. Bowel sounds positive. EXTREMITIES: Right lower extremity: Patient has an Maykel wrap from his toes to below the knees. There is 1+ edema. NEUROLOGICAL: Patient is awake, alert, oriented x3. He has no gross motor or sensory deficit. SKIN: Skin is warm and dry, does have right great toe ulceration. LABS: CBC: White blood count of 10, hemoglobin 12.3, hematocrit 37.1 and platelet count of 214. PT 19.2, INR 2.1. Chemical profile: Sodium 143, potassium 3.5, chloride 102, bicarb 30, BUN 27, creatinine 2.03. CURRENT MEDICATIONS: 1. [place] 5 mg. 2. Cordarone 100 mg. 3. Norvasc 20 mg. 4. Aspirin 81 mg. 5. Lipitor 80 mg. 6. Lisinopril 40 mg b.i.d. 7. Levemir 30 units daily. 8. Zestril 40 mg. 9. Invanz IV and. 10.Coumadin per home dosing. ASSESSMENT: 1. Acute exacerbation congestive heart failure. 2. Osteomyelitis right big toe, status post amputation. 3. Elevated troponin. Possible non-ST elevation myocardial infarction. 4. Acute on chronic renal failure. 5. Open wound right great toe, status post recent amputation at [facility]. 6. Hypokalemia. 7. Normocytic anemia. 8. Atrial fibrillation. The patient is continued on IV antibiotics. Patient was taking IV Zosyn which has been discontinued and patient is currently on Invanz 1 g every 24 hours and plan is to send patient home on IV antibiotics. The patient is no weightbearing on the right toe. Wound VAC is being set up at home. The patient is recommend to follow up with Dr. Looney at wound care center and Dr. Mak is monitoring IV antibiotics. The patient's congestive heart failure is clinically improved. The patient's Lasix has been discontinued. The patient remains on amiodarone for atrial fibrillation with a controlled response. The patient is being followed by Nephrology for acute renal failure, which is slowly improving. Further recommendations per the consultants. Possible discharge in next 24-48 hours. MMODL / IJN: [id number] /
[2017-07-03] MEDS: WARFARIN 1.25 MG TAB PO SCH (17:21)
[2017-07-03 17:41] LABS: Glucose,Whole Blood 231 mg/dL (75-99)
[2017-07-03 20:30] LABS: Glucose,Whole Blood 163 mg/dL (75-99)
[2017-07-03] MEDS: ERTAPENEM 1 GM in SODIUM CHLORIDE 0.9% 50 ML IVPB SCH (21:03)
[2017-07-03] MEDS: LORazepam 1 MG TAB PO PRN (21:15)
--- NOTE | 2017-07-03 21:55 | P.PN ---
Subjective Progress Note Date: 07/03/17 Principal diagnosis: Diabetic foot ulcer 71-year-old male presents to Hospital for ongoing difficulties with his right foot. He's been having difficulties with swelling and ulceration to the right great toe. He was seen at outside facility underwent a distal amputation of the great toe and was been treated with outpatient intravenous antibiotic therapy with Zosyn. The to a worsening drainage and he had increasing amounts of swelling to the leg and consequently presented to the emergency center and he was admitted with concerns to the worsening diabetic foot infection and osteomyelitis. Data from the outside hospital has been requested. The patient relates that he is concerned about further foot loss, which is one of the reasons he presented back to hospital. He has had some fever without chills or rigors. 07/12/2017 reveals the patient to be feeling better. Has been seen by his vascular surgeon in the negative pressure therapy system has been initiated. He is comfortable and is looking forward to discharge soon. The data from the outside hospital reviewed and only coag-negative staph was found from the culture, but pathology did confirm osteomyelitis to the removed right great toe. 07/03/2017 reveals a patient with further improvement. The vascular surgery has no plans for any further surgical intervention at this time. Patient doing well with negative pressure therapy system. Antibiotic therapy was altered to ertapenem which he is tolerating well and has less volume per day with infusion. Overall feeling better. Looks forward to discharge to home with home care and follow-up in the wound healing Center. Objective - Vital Signs Vital signs: Vital Signs Temp 97.4 F L 07/03/17 16:00 Pulse 70 07/03/17 16:00 Resp 17 07/03/17 16:00 BP 142/66 07/03/17 16:00 Pulse Ox 95 07/03/17 16:00 Intake & Output 07/03/17 07/03/17 07/04/17 06:59 18:59 07:59 Intake Total 776 Output Total 700 275 Balance -700 776 -275 Weight 96 kg Intake: Oral 776 Output: Urine 700 275 Other: # Voids 2 - Exam 71-year-old male who is modestly comfortable at this time HEENT: Anicteric conjunctiva are pink and moist nasal mucosa grossly intact without significant lesions, there is no thrush. Neck: The neck is supple without significant lymphadenopathy or thyromegaly. Lungs: Symmetrical air entry is noted expiratory wheezes are scattered with no zena bronchial sounds normal dullness or egophony Heart: Irregular with an audible S1 and S2 positive S4 no distinct murmur click or rub PMI is nondisplaced Abdomen: Mildly obese, Positive bowel sounds soft and nontender without palpable masses or organomegaly. There was no guarding or rebound. Extremities: The upper extremities have excellent pulses they are symmetric, no significant petechiae or telangiectasia. No splinter hemorrhages were noted. Lower extremity reveal evidence of the diminished pulses bilaterally dorsalis pedis and posterior tibialis. Feet are cool but not cold. There is evidence of the distal toe amputation to the right great toe. There is evidence of the open ulceration from the amputation, the negative pressure therapy is now in place. However there is not significant lower extremity erythema. Neuro: Awake alert oriented to person place and time. There are no acute new gross focal sensory motor deficits. Does have peripheral neuropathy. - Labs CBC & Chem 7: 07/03/17 06:04 07/03/17 06:04 Labs: Abnormal Lab Results - Last 24 Hours (Table) 07/03/17 07/03/17 07/03/17 Range/Units 05:57 06:04 06:04 Hgb 12.3 L (13.0-17.5) gm/dL Hct 37.1 L (39.0-53.0) % MCV 77.7 L (80.0-100.0) fL PT 19.2 H (9.0-12.0) sec INR 2.1 H (<1.2) BUN (9-20) mg/dL Creatinine (0.66-1.25) mg/dL Glucose (74-99) mg/dL POC Glucose (mg/dL) 147 H (75-99) mg/dL 07/03/17 07/03/17 07/03/17 Range/Units 06:04 11:13 17:03 Hgb (13.0-17.5) gm/dL Hct (39.0-53.0) % MCV (80.0-100.0) fL PT (9.0-12.0) sec INR (<1.2) BUN 27 H (9-20) mg/dL Creatinine 2.03 H (0.66-1.25) mg/dL Glucose 150 H (74-99) mg/dL POC Glucose (mg/dL) 234 H 231 H (75-99) mg/dL 07/03/17 Range/Units 20:26 Hgb (13.0-17.5) gm/dL Hct (39.0-53.0) % MCV (80.0-100.0) fL PT (9.0-12.0) sec INR (<1.2) BUN (9-20) mg/dL Creatinine (0.66-1.25) mg/dL Glucose (74-99) mg/dL POC Glucose (mg/dL) 163 H (75-99) mg/dL Laboratory Results WBC 10.0 k/uL (3.8-10.6) 07/03/17 06:04 RBC 4.77 m/uL (4.30-5.90) 07/03/17 06:04 Hgb 12.3 gm/dL (13.0-17.5) L 07/03/17 06:04 Hct 37.1 % (39.0-53.0) L 07/03/17 06:04 MCV 77.7 fL (80.0-100.0) L 07/03/17 06:04 MCH 25.7 pg (25.0-35.0) 07/03/17 06:04 MCHC 33.1 g/dL (31.0-37.0) 07/03/17 06:04 RDW 15.5 % (11.5-15.5) 07/03/17 06:04 Plt Count 214 k/uL (150-450) 07/03/17 06:04 Neutrophils % 69 % 07/03/17 06:04 Lymphocytes % 14 % 07/03/17 06:04 Monocytes % 7 % 07/03/17 06:04 Eosinophils % 7 % 07/03/17 06:04 Basophils % 1 % 07/03/17 06:04 Neutrophils # 7.0 k/uL (1.3-7.7) 07/03/17 06:04 Lymphocytes # 1.5 k/uL (1.0-4.8) 07/03/17 06:04 Monocytes # 0.7 k/uL (0-1.0) 07/03/17 06:04 Eosinophils # 0.7 k/uL (0-0.7) 07/03/17 06:04 Basophils # 0.1 k/uL (0-0.2) 07/03/17 06:04 Poikilocytosis Slight 07/03/17 06:04 Microcytosis Slight 07/01/17 06:07 PT 19.2 sec (9.0-12.0) H 07/03/17 06:04 INR 2.1 (<1.2) H 07/03/17 06:04 APTT 33.4 sec (22.0-30.0) H 06/30/17 10:29 D-Dimer 0.51 mg/L FEU (<0.60) 06/30/17 10:29 Sodium 143 mmol/L (137-145) 07/03/17 06:04 Potassium 3.5 mmol/L (3.5-5.1) 07/03/17 06:04 Chloride 102 mmol/L (98-107) 07/03/17 06:04 Carbon Dioxide 30 mmol/L (22-30) 07/03/17 06:04 Anion Gap 11 mmol/L 07/03/17 06:04 BUN 27 mg/dL (9-20) H 07/03/17 06:04 Creatinine 2.03 mg/dL (0.66-1.25) H 07/03/17 06:04 Est GFR (CKD-EPI)AfAm 37 (>60 ml/min/1.73 sqM) 07/03/17 06:04 Est GFR (CKD-EPI)NonAf 32 (>60 ml/min/1.73 sqM) 07/03/17 06:04 Glucose 150 mg/dL (74-99) H 07/03/17 06:04 POC Glucose (mg/dL) 163 mg/dL (75-99) H 07/03/17 20:26 POC Glu Green Feed Attendant Milan Balbuena 07/03/17 20:[address] Glu mg/dL 163 06/30/17 22:03 Hemoglobin A1c 7.3 % (4.0-6.0) H 06/30/17 22:03 Calcium 9.0 mg/dL (8.4-10.2) 07/03/17 06:04 Magnesium 1.9 mg/dL (1.6-2.3) 07/01/17 21:36 Total Bilirubin 0.4 mg/dL (0.2-1.3) 06/30/17 10:29 AST 22 U/L (17-59) 06/30/17 10:29 ALT 31 U/L (21-72) 06/30/17 10:29 Alkaline Phosphatase 74 U/L (38-126) 06/30/17 10:29 Total Creatine Kinase 184 U/L (55-170) H 06/30/17 22:03 CK-MB (CK-2) 3.3 ng/mL (0.0-2.4) H* 06/30/17 22:03 CK-MB (CK-2) Rel Index 1.8 06/30/17 22:03 Troponin I 0.252 ng/mL (0.000-0.034) H* 06/30/17 22:03 NT-Pro-B Natriuret Pep 4820 pg/mL 06/30/17 10:29 Total Protein 5.6 g/dL (6.3-8.2) L 06/30/17 10:29 Albumin 3.2 g/dL (3.5-5.0) L 06/30/17 10:29 Prealbumin 13.0 mg/dL (18.0-42.0) L 07/02/17 05:26 Triglycerides 141 mg/dL (<150) 07/01/17 06:07 Cholesterol 126 mg/dL (<200) 07/01/17 06:07 LDL Cholesterol, Calc 73 mg/dL (0-99) 07/01/17 06:07 HDL Cholesterol 25 mg/dL (40-60) L 07/01/17 06:07 Urine Color Yellow 07/01/17 15:04 Urine Appearance Clear (Clear) 07/01/17 15:04 Urine pH 5.5 (5.0-8.0) 07/01/17 15:04 Ur Specific [place] 1.012 (1.001-1.035) 07/01/17 15:04 Urine Protein 2+ (Negative) H 07/01/17 15:04 Urine Glucose (UA) 1+ (Negative) H 07/01/17 15:04 Urine Ketones Negative (Negative) 07/01/17 15:04 Urine Blood Negative (Negative) 07/01/17 15:04 Urine Nitrite Negative (Negative) 07/01/17 15:04 Urine Bilirubin Negative (Negative) 07/01/17 15:04 Urine Urobilinogen <2.0 mg/dL (<2.0) 07/01/17 15:04 Ur Leukocyte Esterase Negative (Negative) 07/01/17 15:04 Urine RBC 1 /hpf (0-5) 07/01/17 15:04 Urine WBC 4 /hpf (0-5) 07/01/17 15:04 Urine Bacteria Rare /hpf (None) H 07/01/17 15:04 Hyaline Casts 1 /lpf (0-2) 07/01/17 15:04 Assessment and Plan (1) CHF (congestive heart failure) Current Visit: Yes Status: Acute Code(s): I50.9 - HEART FAILURE, UNSPECIFIED SNOMED Code(s): 11479055 (2) Diabetes mellitus Current Visit: Yes Status: Chronic Code(s): E11.9 - TYPE 2 DIABETES MELLITUS WITHOUT COMPLICATIONS SNOMED Code(s): 82664548 (3) Status post amputation of right great toe Narrative/Plan: 71-year-old male who presents to hospital with increasing shortness of breath approximately a 10 pound weight gain. With his known history of underlying coronary disease and congestive heart failure he was having concerns to worsening congestive heart failure as well as worsening to the ulcerations the right great toe. He has was admitted in with an alteration of his Lasix from his chemical blender she's feeling somewhat better. That is evidence of the complicated ulceration to the right great toe status post partial amputation. We have requested. Cultures from the outside hospital. He is noticed to have volume overload and is also having some thrombocytopenia. I'm concerned that the outpatient antibiotics therapy of Zosyn can be contributing to both by the sodium load as well as the piperacillin induced thrombocytopenia that is common. This was changed to Invanz for now until we have further data. Local wound care with Santyl dressing will continue on a daily basis. Elevate the limb while he is at rest. As noted being treated for congestive heart failure which also be very helpful for the ulceration. This potentially be a candidate for SNAP VAC at discharge. Multivitamin with zinc is added and we'll check his protein status. 07/02/2017 reveals the patient to be improved, denies pain and feels improved. Is looking forward to discharge to home. The outside hospital data is reviewed. There is no compelling evidence that Zosyn was the drug of choice and consequently he has been transitioned to Invanz which will allow once a day dosing, lower volume and less thrombocytopenia. This is being put through his home infusion company, [employer]. Likely will be discharged home tomorrow. Standard negative pressure therapy is being considered and applied today. PICC line are in place. We'll follow the wound healing center after discharge. The selective at his weightbearing to the right foot to just he'll touch with balance 07/03/2017 shows the patient had further improvement. At this time awaiting furthers insurance authorization for the negative pressure therapy to the right great toe as well as the outpatient intravenous antibiotic therapy of Invanz 1 g IVPB looks forward to discharge as soon as possible from an insurance point review. Since importance of offloading and followed up in the wound healing Center. that daily the treatment of the osteomyelitis to the right great toe with goal for foot salvage. Current Visit: Yes Status: Acute Code(s): Z89.411 - ACQUIRED ABSENCE OF RIGHT GREAT TOE SNOMED Code(s): 111108786
[2017-07-04 05:57] LABS: Glucose,Whole Blood 126 mg/dL (75-99)
[2017-07-04] MEDS: INSULIN ASPART 100 UNIT/ML 1 ML 10 ML VIAL SQ SCH ×4 (06:11→21:15)
[2017-07-04] MEDS: NITROGLYCERIN OINT 1 INCH/GM PACKET TOPICAL SCH ×3 (06:13→17:06)
[2017-07-04 07:02] LABS: Basophils # (A) 0.1 k/uL (0-0.2); Basophils % (A) 1 %; Eosinophils # (A) 0.6 k/uL (0-0.7); Eosinophils % (A) 8 %; HCT 35.9 % (39.0-53.0); HGB 12.4 gm/dL (13.0-17.5); Lymphocytes # (A) 1.1 k/uL (1.0-4.8); Lymphocytes % (A) 13 %; MCH 26.6 pg (25.0-35.0); MCHC 34.6 g/dL (31.0-37.0); MCV 76.7 fL (80.0-100.0); Mean Platelet Volume 8.6; Microcytosis Slight; Monocytes # (A) 0.5 k/uL (0-1.0); Monocytes % (A) 6 %; Neutrophils # (A) 5.6 k/uL (1.3-7.7); Neutrophils % (A) 70 %; Platelet Count 202 k/uL (150-450); Poikilocytosis Slight; RBC 4.68 m/uL (4.30-5.90); RDW 15.2 % (11.5-15.5)
[2017-07-04 07:12] LABS: INR 2.1 (<1.2); Prothrombin Time 19.4 sec (9.0-12.0)
[2017-07-04 07:20] LABS: Calcium 8.5 mg/dL (8.4-10.2); Potassium 3.3 mmol/L (3.5-5.1)
[2017-07-04] MEDS: LISINOPRIL 20 MG TAB PO SCH (08:54)
[2017-07-04] MEDS: AMIODARONE 100 MG TAB PO SCH (08:54)
[2017-07-04] MEDS: amLODIPine 10 MG TAB PO SCH (08:55)
[2017-07-04] MEDS: COLLAGENASE 250 UNIT/GM OINTMENT 30 GM TUBE TOPICAL SCH (08:55)
[2017-07-04] MEDS: INSULIN DETEMIR 100 UNIT/ML 10 ML VIAL SQ SCH (08:55)
[2017-07-04] MEDS: ATORVASTATIN 80 MG TAB PO SCH (08:55)
[2017-07-04] MEDS: ASPIRIN 81 MG PO SCH (08:55)
[2017-07-04] MEDS ORDERED: POTASSIUM CHLORIDE ER 20 MEQ TAB.ER PO STA (09:34)
--- NOTE | 2017-07-04 10:09 | P.PN ---
Subjective Progress Note Date: 07/04/17 Seen and examined for the follow-up of acute kidney injury. Right foot cellulitis currently with the wound VAC. Objective - Vital Signs Vital signs: Vital Signs Temp 97 F L 07/04/17 08:00 Pulse 72 07/04/17 08:00 Resp 17 07/04/17 08:00 BP 138/60 07/04/17 08:00 Pulse Ox 95 07/04/17 08:00 Intake & Output 07/03/17 07/04/17 07/04/17 17:59 06:59 18:59 Intake Total 118 Output Total Balance 118 Weight Intake: Oral 118 Output: Urine Other: # Voids - Exam Lying in bed no acute distress S1 and S2 heard Lungs clear to auscultation Abdomen soft bowel sounds present Trace edema and right toe wound VAC - Labs CBC & Chem 7: 07/04/17 06:41 07/04/17 06:41 Labs: Abnormal Lab Results - Last 24 Hours (Table) 07/03/17 07/03/17 07/03/17 Range/Units 11:13 17:03 20:26 Hgb (13.0-17.5) gm/dL Hct (39.0-53.0) % MCV (80.0-100.0) fL PT (9.0-12.0) sec INR (<1.2) Potassium (3.5-5.1) mmol/L BUN (9-20) mg/dL Creatinine (0.66-1.25) mg/dL Glucose (74-99) mg/dL POC Glucose (mg/dL) 234 H 231 H 163 H (75-99) mg/dL 07/04/17 07/04/17 07/04/17 Range/Units 05:54 06:41 06:41 Hgb 12.4 L (13.0-17.5) gm/dL Hct 35.9 L (39.0-53.0) % MCV 76.7 L (80.0-100.0) fL PT 19.4 H (9.0-12.0) sec INR 2.1 H (<1.2) Potassium (3.5-5.1) mmol/L BUN (9-20) mg/dL Creatinine (0.66-1.25) mg/dL Glucose (74-99) mg/dL POC Glucose (mg/dL) 126 H (75-99) mg/dL 07/04/17 Range/Units 06:41 Hgb (13.0-17.5) gm/dL Hct (39.0-53.0) % MCV (80.0-100.0) fL PT (9.0-12.0) sec INR (<1.2) Potassium 3.3 L (3.5-5.1) mmol/L BUN 24 H (9-20) mg/dL Creatinine 1.90 H (0.66-1.25) mg/dL Glucose 135 H (74-99) mg/dL POC Glucose (mg/dL) (75-99) mg/dL Assessment and Plan Assessment: Impression: 1 acute kidney injury secondary to cardiorenal syndrome currently stable. #2 CKD stage III baseline creatinine 1.6. Secondary to nephrosclerosis. #3 coronary artery disease status post CABG. #4 A. fib on anticoagulation. #5 metabolic alkalosis. #6 mild hypernatremia. Recommendations: #1 renal function stable monitor. Continue on current dose lisinopril. #2 avoid nephrotoxic agents and hypotensive episodes. #3 currently off diuretics monitor. #4 replace KCl and discontinue IV fluids for mild hypernatremia
[2017-07-04 11:50] LABS: Glucose,Whole Blood 192 mg/dL (75-99)
[2017-07-04] MEDS: MULTIVITAMINS, THERA 1 EACH TAB PO SCH (11:55)
[2017-07-04 17:01] LABS: Glucose,Whole Blood 175 mg/dL (75-99)
[2017-07-04] MEDS: WARFARIN 2.5 MG TAB PO SCH (17:11)
--- NOTE | 2017-07-04 18:47 | PN ---
PROGRESS NOTE DATE OF SERVICE: 07/04/2017 Patient seen in the room sitting at bedside. also at the bedside. Claims he would like to go home and claims that he was told by Dr. Mak that his wound VAC and home infusion therapy is in place. His vital signs: Temperature 97, pulse 72, respirations 17, blood pressure 138/60, O2 saturation 95%. HEENT atraumatic, normocephalic. Pupils equal and react to light. Extraocular movements intact. Buccal mucosa is moist. Neck is supple. No goiter, lymphadenopathy. JVD is negative. No carotid bruit heard. Lungs are clear to auscultate. No rales, rhonchi, or wheezes. Heart is regular rate and rhythm without any murmurs, gallop rhythm. Abdomen is soft, nontender, nondistended. Bowel sounds positive. Extremities patient has trace edema on both lower extremities. Right toe wound VAC is present. Rest of the extremity is covered in dressing. Neurological examination: Cranial nerves 2-12 grossly intact. No gross motor or sensory deficit. Skin as above. LABS: CBC, white blood count of 8.2, hemoglobin 12.1, hematocrit 35.9, and platelet count of 202. Chemical profile sodium 140, potassium 3.3, chloride 105, bicarb 11, BUN 24, creatinine 1.9, glucose 135. ASSESSMENT: 1. Hypokalemia. Will supplement with oral potassium. 2. Acute renal injury secondary to cardiorenal syndrome. Nephrology is following. 3. Acute exacerbation congestive heart failure clinically stable. 4. Osteomyelitis right big toe status post amputation. The patient is status post recent amputation at [facility] and he has open wound right great toe. Continue with wound VAC services, IV antibiotics. 5. Cellulitis, right lower extremity, clinically stable. 6. Elevated troponin. Possible non ST elevation myocardial infarction, clinically stable. Cardiology has been following. 7. Normocytic anemia. 8. Atrial fibrillation. Patient remains on IV Invanz. According to Dr. Mak documentation, he is still waiting on the approval for IV antibiotics and also on wound VAC services. The patient is clinically improved. BUN, creatinine are improving and the plan is to discharge the patient home once he is set up for wound VAC and also for IV antibiotics and Case Management is on the case. MMODL / IJN: [id number] /
[2017-07-04 20:56] LABS: Glucose,Whole Blood 175 mg/dL (75-99)
[2017-07-04] MEDS: LORazepam 1 MG TAB PO PRN (21:16)
[2017-07-04] MEDS: ERTAPENEM 1 GM in SODIUM CHLORIDE 0.9% 50 ML IVPB SCH (22:27)
[2017-07-05] MEDS: NITROGLYCERIN OINT 1 INCH/GM PACKET TOPICAL SCH ×3 (00:01→12:13)
[2017-07-05 07:32] LABS: Glucose,Whole Blood 225 mg/dL (75-99)
[2017-07-05] MEDS: amLODIPine 10 MG TAB PO SCH (08:05)
[2017-07-05] MEDS: AMIODARONE 100 MG TAB PO SCH (08:05)
[2017-07-05] MEDS: ASPIRIN 81 MG PO SCH (08:05)
[2017-07-05] MEDS: ATORVASTATIN 80 MG TAB PO SCH (08:06)
[2017-07-05] MEDS: INSULIN ASPART 100 UNIT/ML 1 ML 10 ML VIAL SQ SCH ×2 (08:06→12:11)
[2017-07-05] MEDS: LISINOPRIL 20 MG TAB PO SCH (08:07)
[2017-07-05] MEDS: COLLAGENASE 250 UNIT/GM OINTMENT 30 GM TUBE TOPICAL SCH (08:57)
[2017-07-05] MEDS: INSULIN DETEMIR 100 UNIT/ML 10 ML VIAL SQ SCH (08:57)
[2017-07-05 09:43] LABS: Prothrombin Time 18.2 sec (9.0-12.0)
[2017-07-05 10:14] LABS: Calcium 8.7 mg/dL (8.4-10.2); Potassium 3.9 mmol/L (3.5-5.1)
[2017-07-05 10:59] LABS: Basophils # (A) 0.1 k/uL (0-0.2); Basophils % (A) 1 %; Eosinophils # (A) 0.7 k/uL (0-0.7); Eosinophils % (A) 8 %; HCT 37.6 % (39.0-53.0); HGB 12.7 gm/dL (13.0-17.5); Lymphocytes # (A) 0.9 k/uL (1.0-4.8); Lymphocytes % (A) 12 %; MCH 26.4 pg (25.0-35.0); MCHC 33.8 g/dL (31.0-37.0); Mean Platelet Volume 8.3; Monocytes # (A) 0.5 k/uL (0-1.0); Monocytes % (A) 7 %; Neutrophils # (A) 5.6 k/uL (1.3-7.7); Neutrophils % (A) 71 %; Platelet Count 185 k/uL (150-450); Poikilocytosis Slight; RBC 4.82 m/uL (4.30-5.90); RDW 15.1 % (11.5-15.5); WBC 7.8 k/uL (3.8-10.6)
[2017-07-05 11:48] LABS: Glucose,Whole Blood 291 mg/dL (75-99)
[2017-07-05] MEDS: MULTIVITAMINS, THERA 1 EACH TAB PO SCH (12:13)
--- NOTE | 2017-07-05 14:04 | P.PN ---
Subjective Progress Note Date: 07/05/17 Principal diagnosis: Recent right great toe partial amputation. History of paroxysmal atrial fibrillation on Coumadin, coronary artery disease with previous coronary artery bypass graft surgery, insulin-dependent diabetes mellitus, hyperlipidemia, hypertension, recent pneumonia, chronic kidney disease stage III, and previous tobacco dependence. Patient's currently sitting up in bed in no acute distress. Apparently he will be discharged later today to home. Denies any pain. Objective - Vital Signs Vital signs: Vital Signs Temp 97.0 F L 07/05/17 06:38 Pulse 76 07/05/17 06:38 Resp 16 07/05/17 06:38 BP 153/83 07/05/17 06:38 Pulse Ox 92 L 07/05/17 06:38 Intake & Output 07/04/17 07/05/17 07/05/17 18:59 06:59 18:59 Intake Total 118 Output Total 425 Balance 118 -425 Intake: Oral 118 Output: Urine 425 Other: # Voids 2 2 - Constitutional General appearance: Present: cooperative, no acute distress, obese - Respiratory Details: Lung sounds clear bilaterally. Respirations even, nonlabored. Currently on room air with oxygen saturation 92-93%. - Cardiovascular Details: S1, S2 present. Regular rate and rhythm. Palpable peripheral pulses bilaterally. No edema present. No calf pain or tenderness noted. - Gastrointestinal Gastrointestinal Comment(s): Abdomen soft, nontender, nondistended. Active bowel sounds 4 quadrants. Tolerating diet. - Genitourinary Genitourinary Comment(s): Continues to void clear, yellow urine. - Integumentary Integumentary Comment(s): Skin is warm and dry. Right great toe with wound VAC present. - Neurologic Neurologic: Present: CNII-XII intact - Musculoskeletal Musculoskeletal: Present: gait normal, strength equal bilaterally - Psychiatric Psychiatric: Present: A&O x's 3, appropriate affect, intact judgment & insight - Allied health notes Allied health notes reviewed: nursing - Labs CBC & Chem 7: 07/05/17 08:57 07/05/17 08:57 Labs: Abnormal Lab Results - Last 24 Hours (Table) 07/04/17 07/04/17 07/05/17 Range/Units 16:55 20:53 07:19 Hgb (13.0-17.5) gm/dL Hct (39.0-53.0) % MCV (80.0-100.0) fL Lymphocytes # (1.0-4.8) k/uL PT (9.0-12.0) sec INR (<1.2) BUN (9-20) mg/dL Creatinine (0.66-1.25) mg/dL Glucose (74-99) mg/dL POC Glucose (mg/dL) 175 H 175 H 225 H (75-99) mg/dL 07/05/17 07/05/17 07/05/17 Range/Units 08:57 08:57 08:57 Hgb 12.7 L (13.0-17.5) gm/dL Hct 37.6 L (39.0-53.0) % MCV 78.0 L (80.0-100.0) fL Lymphocytes # 0.9 L (1.0-4.8) k/uL PT 18.2 H (9.0-12.0) sec INR 2.0 H (<1.2) BUN 26 H (9-20) mg/dL Creatinine 1.70 H (0.66-1.25) mg/dL Glucose 251 H (74-99) mg/dL POC Glucose (mg/dL) (75-99) mg/dL 07/05/17 Range/Units 11:23 Hgb (13.0-17.5) gm/dL Hct (39.0-53.0) % MCV (80.0-100.0) fL Lymphocytes # (1.0-4.8) k/uL PT (9.0-12.0) sec INR (<1.2) BUN (9-20) mg/dL Creatinine (0.66-1.25) mg/dL Glucose (74-99) mg/dL POC Glucose (mg/dL) 291 H (75-99) mg/dL Assessment and Plan (1) Open wound of right great toe Current Visit: Yes Status: Acute Code(s): S91.101A - UNSP OPEN WOUND OF RIGHT GREAT TOE W/O DAMAGE TO NAIL, INIT SNOMED Code(s): 885813963 (2) Diabetes mellitus Current Visit: Yes Status: Chronic Code(s): E11.9 - TYPE 2 DIABETES MELLITUS WITHOUT COMPLICATIONS SNOMED Code(s): 22702655 Plan: 1. Patient may be discharged home from our standpoint. Home care to reapply wound VAC, change Wednesday, Wednesday, Wednesday. Patient should follow up in the wound care center with Dr. Looney, they will call him with an appointment time. 2. IV antibiotics per Dr. Mak. 3. Patient to remain non-weight bearing on right foot. Time with Patient: Greater than 30
[2017-07-05] MEDS: ERTAPENEM 1 GM in SODIUM CHLORIDE 0.9% 50 ML IVPB SCH (14:56)
[2017-07-05 15:00] VITALS: BP 154/77; PULSE 68; RESP 18; TEMP 96.6
[2017-07-05] MEDS: WARFARIN 1.25 MG TAB PO SCH (15:11)
--- NOTE | 2017-07-06 00:39 | DS ---
DISCHARGE SUMMARY FINAL DIAGNOSES: 1. Acute renal injury secondary to cardiorenal syndrome. 2. Congestive heart failure acute exacerbation. 3. Hypokalemia. 4. Osteomyelitis of the right big toe, status post amputation on wound VAC. 5. Cellulitis of the right lower extremity. 6. Elevated troponin, possible acute non-ST elevation myocardial infarction, clinically stable, possibly type 2. 7. Normocytic anemia. 8. Atrial fibrillation. DISCHARGE DISPOSITION: The patient will be discharged in stable condition with guarded prognosis. Total time taken was 35 minutes. HISTORY OF PRESENT ILLNESS: This 71-year-old gentleman was admitted with multiple complex medical issues. Patient was treated symptomatically. Patient improved significantly. IV antibiotics were done. Dr. Mak saw the patient and recommended to continue with IV antibiotics at home. Multiple consultants saw the patient during hospitalization. Patient's creatinine is stable at 1.7. On exam, vital signs are stable. CARDIOVASCULAR: S1, S2. ABDOMEN: Soft. NERVOUS SYSTEM: No focal deficits. DISCHARGE ADVICE AND MEDICATIONS: 1. Diet is cardiac diet. 2. Activity limited until followup. 3. Follow up with [facility] in 1 week. 4. Accu-[place]livaks a.c. and h.s. with results to Dr. Dodd. 5. Follow up with Dr. Welch, Dr. 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 Medications will be: 1. Cordarone 100 mg p.o. daily. 2. Norvasc 10 mg p.o. daily. 3. Aspirin 81 mg p.o. daily. 4. Lipitor 80 mg p.o. daily. 5. local application. 6. Invanz1 g IV daily for 35 days. 7. [place] 5 mg q.6h p.r.n. 8. NovoLog scale. 9. Lantus 30 units subcu daily. 10.Zestril 40 mg p.o. daily. 11.Multivitamins 1 p.o. daily. 12.Systane 1 drop both eyes. 13.Coumadin 2.5 mg Wednesday, Wednesday, and 3.75 mg on other days. Monitor CBC, BMP, PT/INR in the outpatient setting. MMODL / IJN: [id number] / MTDD
--- NOTE | 2017-07-06 11:32 | CDI ---
Last Revision, March 2017 Documentation Clarification Form Date: 07/06/17 From: Josefa Kt Sonam Blas, Manufacturing Engineer [employer] between 8:30 am & 5 pm Zonia Admit Date: 06/30/2017 12:44:00 PM Patient Name: Victor Manuel Benites Visit Number: [id number] Discharge Date: 07/05/17 ATTENTION: The Clinical Documentation Specialists (CDI) and [facility] Coding Staff appreciate your assistance in clarifying documentation. Please respond to the clarification below the line at the bottom and electronically sign. The CDI & [facility] Coding staff will review the response and follow-up if needed. Please note: Queries are made part of the Legal Health Record. If you have any questions, please contact the author of this message via ITS. Dr. Supa Ang Patient admitted due to acute exacerbation of CHF. Echo revealed: left ventricular systolic function is low-normal with, an EF between 50-55%. Right ventricular systolic pressure is normal at <35 mmHg. BNP is 4820. Chest X Ray: Blunting the left costophrenic angle. Correlate for atelectasis versus small left pleural effusion.06/30 Started with Lasix 20 mg IV x once then 20 mg IV Q8HR. 07/01 changed to 40 mg IV Q12HR. In your professional opinion, can you please clarify the acuity and type of CHF if known? Systolic Heart Failure: Acute Acute on Chronic Diastolic Heart Failure: Acute Acute on Chronic Systolic & Diastolic Heart Failure: Acute Acute on Chronic Heart Failure Unable to Determine Other, please specify Please continue to document in your progress notes and discharge summary in order to capture severity of illness and risk of mortality. Include clinical findings that support your diagnosis. MTDD
--- NOTE | 2017-07-06 21:25 | PN ---
PROGRESS NOTE DATE OF SERVICE: 07/05/2017. The patient is seen for followup for acute kidney injury. His renal function has improved with creatinine now down to 1.7 mg/dL. The patient is being considered for discharge. EXAMINATION: Blood pressure was 153/83, heart rate 76 per minute. Patient is afebrile. Examination of the heart S1, S2. Examination of lungs bilateral breath sounds are heard. Abdomen is soft, nontender. Examination of lower extremities shows no significant edema. His right foot is currently wrapped. LABS: Revealed sodium 141, potassium 3.9, BUN 26, serum creatinine 1.7, hemoglobin 12.7 g/dL. ASSESSMENT: 1. Acute kidney injury mainly cardiorenal currently improved. 2. Chronic kidney disease stage 3 secondary to nephrosclerosis with baseline creatinine about 1.6 mg/dL, maintained on FRAN inhibitors. 3. Coronary artery disease, history of coronary artery bypass surgery. 4. Right foot cellulitis maintained on Ertapenem being followed by ID and vascular surgery. PLAN: Patient is stable for discharge from Nephrology standpoint. MMODL / IJN: [id number] /
--- NOTE | 2017-07-19 09:52 | CDI ---
Last Revision, March 2017 Documentation Clarification Form Date: 07/19/17 From: Josefa Kt Sonam Blas, Registered Associate between 8:30 am & 5 pm Zonia Admit Date: 06/30/2017 12:44:00 PM Patient Name: Victor Manuel Benites Visit Number: [id number] Discharge Date: 07/05/17 ATTENTION: The Clinical Documentation Specialists (CDI) and [facility] Coding Staff appreciate your assistance in clarifying documentation. Please respond to the clarification below the line at the bottom and electronically sign. The CDI & [facility] Coding staff will review the response and follow-up if needed. Please note: Queries are made part of the Legal Health Record. If you have any questions, please contact the author of this message via ITS. Dr. Supa Ang Patient admitted due to acute exacerbation of CHF. Echo revealed: left ventricular systolic function is low-normal with, an EF between 50-55%. Right ventricular systolic pressure is normal at <35 mmHg. BNP is 4820. Chest X Ray: Blunting the left costophrenic angle. Correlate for atelectasis versus small left pleural effusion. Started with Lasix 20 mg IV x once then 20 mg IV Q8HR. 07/01 changed to 40 mg IV Q12HR. In your professional opinion, can you please clarify the acuity and type of CHF if known? Type Systolic Heart Failure: Diastolic Heart Failure: Systolic & Diastolic Heart Failure: AND Acuity Acute Acute on Chronic Unable to Determine Other, please specify Please continue to document in your progress notes and discharge summary in order to capture severity of illness and risk of mortality. Include clinical findings that support your diagnosis. MTDD
--- NOTE | 2017-07-30 08:19 | CDI ---
Last Revision, March 2017 Documentation Clarification Form (3rd time) Date: 07/30/17 From: Josefa Kt Sonam Blas, Hall Cleaner between 8:30 am & 5 pm Zonia Admit Date: 06/30/2017 12:44:00 PM Patient Name: Victor Manuel Benites Visit Number: [id number] Discharge Date: 07/05/17 ATTENTION: The Clinical Documentation Specialists (CDI) and [facility] Coding Staff appreciate your assistance in clarifying documentation. Please respond to the clarification below the line at the bottom and electronically sign. The CDI & [facility] Coding staff will review the response and follow-up if needed. Please note: Queries are made part of the Legal Health Record. If you have any questions, please contact the author of this message via ITS. Dr. Supa Ang Patient admitted due to acute exacerbation of CHF. Echo revealed: left ventricular systolic function is low-normal with, an EF between 50-55%. Right ventricular systolic pressure is normal at <35 mmHg. BNP is 4820. Chest X Ray: Blunting the left costophrenic angle. Correlate for atelectasis versus small left pleural effusion. Treatment: started with Lasix 20 mg IV x once then 20 mg IV Q8HR. 07/01 changed to 40 mg IV Q12HR. In your professional opinion, can you please clarify the acuity and type of CHF if known? Type Systolic Heart Failure: Diastolic Heart Failure: Systolic & Diastolic Heart Failure: AND Acuity Acute Acute on Chronic Unable to Determine Other, please specify . Dr. Lovell's opinion Please see my original note/cardiac consult My medical opinion was that this was iatrogenic fluid overload as per my original consult and hence he was treated with IV Lasix. I'm unable to comment on his heart failure status any further I would defer to other medical physicians including nephrology taking care of this patient MTDD
--- NOTE | 2017-08-13 15:57 | CDI ---
Last Revision, March 2017 Documentation Clarification Form Date: 08/13/17 From: Josefa Kt Sonam Blas, Systems Analysis Manager between 8:30 am & 5 pm Zonia Admit Date: 06/30/2017 12:44:00 PM Patient Name: Victor Manuel Benites Visit Number: [id number] Discharge Date: 07/05/17 ATTENTION: The Clinical Documentation Specialists (CDI) and [facility] Coding Staff appreciate your assistance in clarifying documentation. Please respond to the clarification below the line at the bottom and electronically sign. The CDI & [facility] Coding staff will review the response and follow-up if needed. Please note: Queries are made part of the Legal Health Record. If you have any questions, please contact the author of this message via ITS. Dr. Janeth Ang deferred to attending physician. Patient admitted due to acute exacerbation of CHF. Echo revealed: left ventricular systolic function is low-normal with, an EF between 50-55%. Right ventricular systolic pressure is normal at <35 mmHg. BNP is 4820. Chest X Ray: Blunting the left costophrenic angle. Correlate for atelectasis versus small left pleural effusion.Started with Lasix 20 mg IV x once then 20 mg IV Q8HR. 07/01 changed to 40 mg IV Q12HR. In your professional opinion, can you please clarify the acuity and type of CHF if known? Type Systolic Heart Failure: Diastolic Heart Failure: Systolic & Diastolic Heart Failure: Acuity Acute Acute on Chronic Unable to Determine Other, please specify Please continue to document in your progress notes and discharge summary in order to capture severity of illness and risk of mortality. Include clinical findings that support your diagnosis. Diastolic Heart Failure: Acute on Chronic MTDD
== END 2017-07-05 16:28 | disposition home health service (06) | DRG 280 ==
LOC: EC 09:45 → 6SEL 12:44 → 4MS4W 07-04 17:50
PROVIDERS: ADMIT Internal Medicine; ATTEND Internal Medicine
DX: I13.0 Hypertensive heart and chronic kidney disease with heart failure and stage 1 through stage 4 chronic kidney disease, or unspecified chronic kidney disease (principal); I21.A1 Myocardial infarction type 2; I50.33 Acute on chronic diastolic (congestive) heart failure; E87.3 Alkalosis; N17.9 Acute kidney failure, unspecified; L03.115 Cellulitis of right lower limb; M86.9 Osteomyelitis, unspecified; E11.22 Type 2 diabetes mellitus with diabetic chronic kidney disease; I48.0 Paroxysmal atrial fibrillation; E11.319 Type 2 diabetes mellitus with unspecified diabetic retinopathy without macular edema; E11.42 Type 2 diabetes mellitus with diabetic polyneuropathy; E11.621 Type 2 diabetes mellitus with foot ulcer; E11.51 Type 2 diabetes mellitus with diabetic peripheral angiopathy without gangrene; L97.519 Non-pressure chronic ulcer of other part of right foot with unspecified severity; E11.69 Type 2 diabetes mellitus with other specified complication; N18.3 Chronic kidney disease, stage 3 (moderate); D64.9 Anemia, unspecified; E87.6 Hypokalemia; I25.10 Atherosclerotic heart disease of native coronary artery without angina pectoris; E78.5 Hyperlipidemia, unspecified; K57.90 Diverticulosis of intestine, part unspecified, without perforation or abscess without bleeding; N40.0 Benign prostatic hyperplasia without lower urinary tract symptoms; H54.61 Unqualified visual loss, right eye, normal vision left eye; I25.2 Old myocardial infarction; E66.9 Obesity, unspecified; Z68.30 Body mass index [BMI] 30.0-30.9, adult; Z79.01 Long term (current) use of anticoagulants; Z79.82 Long term (current) use of aspirin; Z79.4 Long term (current) use of insulin; Z79.899 Other long term (current) drug therapy; Z95.1 Presence of aortocoronary bypass graft; Z87.01 Personal history of pneumonia (recurrent); Z89.411 Acquired absence of right great toe; Z95.5 Presence of coronary angioplasty implant and graft; Z98.41 Cataract extraction status, right eye; Z86.19 Personal history of other infectious and parasitic diseases; Z87.891 Personal history of nicotine dependence; Z87.81 Personal history of (healed) traumatic fracture; Z88.1 Allergy status to other antibiotic agents; Z88.2 Allergy status to sulfonamides
CPT/HCPCS: 36415; 71045; 71046; 80048; 80053; 80061; 81001; 82550; 82553; 83036; 83735; 83880; 84134; 84484; 85025; 85379; 85610; 85652; 85730; 86140; 93005; 93306; 96374; 99285

== ENCOUNTER 2017-09-29 09:59 | Day surgery (SDC) | payer MEDICARE ==
[2017-09-24 16:17] VITALS: BMI 29.7
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
[~2017-09-29 09:59] MED LIST: LACTATED RINGERS 1,000 ML IV SCH; LIDOCAINE 1% 20 ML VIAL (10MG/ML) FOR IV START INTRADERMA PRN; MORPHINE SULFATE 2 MG/ML SYRINGE IV PRN; ONDANSETRON 4 MG/2 ML VIAL IVP ONE; ceFAZolin IN SWFI 2 GM/20 ML SYRINGE IVP ONE
[2017-09-29 10:37] LABS: Glucose,Whole Blood 156 mg/dL (75-99)
[2017-09-29 10:46] VITALS: RESP 18; TEMP 97.8
[2017-09-29 10:55] LABS: Basophils % (A) 0 %; Eosinophils # (A) 0.7 k/uL (0-0.7); Eosinophils % (A) 7 %; HCT 41.6 % (39.0-53.0); HGB 14.3 gm/dL (13.0-17.5); Lymphocytes # (A) 1.2 k/uL (1.0-4.8); Lymphocytes % (A) 11 %; MCH 26.9 pg (25.0-35.0); MCHC 34.4 g/dL (31.0-37.0); MCV 78.2 fL (80.0-100.0); Mean Platelet Volume 7.7; Microcytosis Slight; Monocytes # (A) 0.7 k/uL (0-1.0); Monocytes % (A) 7 %; Neutrophils # (A) 7.8 k/uL (1.3-7.7); Neutrophils % (A) 74 %; Platelet Count 269 k/uL (150-450); RBC 5.32 m/uL (4.30-5.90); RDW 15.5 % (11.5-15.5); WBC 10.5 k/uL (3.8-10.6)
[2017-09-29 11:07] LABS: Albumin 4.1 g/dL (3.5-5.0); Calcium 9.3 mg/dL (8.4-10.2); Potassium 4.6 mmol/L (3.5-5.1); Total Bilirubin 0.5 mg/dL (0.2-1.3); Total Protein 6.5 g/dL (6.3-8.2)
[2017-09-29 11:12] LABS: INR 1.5 (<1.2); Partial Thromboplastin Time 29.9 sec (22.0-30.0); Prothrombin Time 14.3 sec (9.0-12.0)
[2017-09-29] MEDS ORDERED: fentaNYL (PF) 50 MCG/ML 2 ML AMP ONE (11:37)
[2017-09-29] MEDS ORDERED: PROPOFOL 10 MG/ML 20 ML VIAL IV ONE (11:37)
[2017-09-29] MEDS ORDERED: MIDAZOLAM 2 MG/2 ML VIAL ONE (11:37)
[2017-09-29] MEDS ORDERED: KETAMINE 10 MG/ML 20 ML VIAL ONE (11:37)
[2017-09-29 12:32] LABS: Glucose,Whole Blood 152 mg/dL (75-99)
[2017-09-29 13:34] VITALS: BP 147/74; PULSE 59
--- NOTE | 2017-10-13 09:07 | P.PCN ---
Date of Procedure: 09/29/17 Preoperative Diagnosis: Necrosis right third toe, Tristan's grade 3 ulcer, with bony involvement Postoperative Diagnosis: Same Procedure(s) Performed: Amputation right third toe through proximal phalanx Anesthesia: MAC Surgeon: Rangel Looney Estimated Blood Loss (ml): 5 Pathology: none sent Condition: stable Disposition: PACU Indications for Procedure: Patient has developed a pressure ulcer with bony involvement at the distal tip of the phalanx of the right third toe. Operative Findings: Proximal tissues appeared fairly healthy. Description of Procedure: With the patient spine position, under benefit of IV sedation, we made a fishmouth incision proximally at the base of the toe. The bone was divided with a bone cutter and with a Wilman taken up above the soft tissue level. The wound was irrigated and then closed with 4-0 nylon. Sterile dressings were applied. The patient tolerated the procedure well.
== END 2017-09-29 13:35 | disposition home or self-care (01) ==
LOC: OR 09:59
PROVIDERS: ATTEND Thoracic Surgery (Cardiothoracic Vascular Surgery)
DX: L97.514 Non-pressure chronic ulcer of other part of right foot with necrosis of bone (principal); E11.621 Type 2 diabetes mellitus with foot ulcer; E11.69 Type 2 diabetes mellitus with other specified complication; M86.9 Osteomyelitis, unspecified; E11.22 Type 2 diabetes mellitus with diabetic chronic kidney disease; I12.9 Hypertensive chronic kidney disease with stage 1 through stage 4 chronic kidney disease, or unspecified chronic kidney disease; N18.3 Chronic kidney disease, stage 3 (moderate); E11.319 Type 2 diabetes mellitus with unspecified diabetic retinopathy without macular edema; H54.61 Unqualified visual loss, right eye, normal vision left eye; E11.40 Type 2 diabetes mellitus with diabetic neuropathy, unspecified; I48.91 Unspecified atrial fibrillation; I25.10 Atherosclerotic heart disease of native coronary artery without angina pectoris; E11.9 Type 2 diabetes mellitus without complications; E78.5 Hyperlipidemia, unspecified; H93.19 Tinnitus, unspecified ear; I25.2 Old myocardial infarction; Z95.5 Presence of coronary angioplasty implant and graft; Z95.1 Presence of aortocoronary bypass graft; Z79.01 Long term (current) use of anticoagulants; Z79.2 Long term (current) use of antibiotics; Z79.82 Long term (current) use of aspirin; Z79.4 Long term (current) use of insulin; Z79.899 Other long term (current) drug therapy; Z87.891 Personal history of nicotine dependence; Z88.1 Allergy status to other antibiotic agents; Z88.2 Allergy status to sulfonamides
CPT/HCPCS: 88305; 80053; 85025; 85610; 85730; 87070; 87205; 87075; 28825; J2250; J2405; J3010; J2704

== ENCOUNTER 2017-11-24 10:06 | Day surgery (SDC) | payer MEDICARE ==
[2017-11-18 14:03] VITALS: BMI 32.1
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
[~2017-11-24 10:06] MED LIST changes: +DEXAMETHASONE SOD PHOSPHATE 10 MG/ML 1 ML VIAL IV ONE; +HYDROmorphone 0.5 MG/0.5 ML SYRINGE IVP PRN; +MIDAZOLAM 2 MG/2 ML VIAL IV PRN; -MORPHINE SULFATE 2 MG/ML SYRINGE IV PRN; +SCOPOLAMINE 1.5MG/72HR PATCH TRANSDERM ONE
[2017-11-24 10:35] VITALS: RESP 18
[2017-11-24] MEDS ORDERED: PROPOFOL 10 MG/ML 20 ML VIAL IV ONE (10:52)
[2017-11-24] MEDS ORDERED: SUCCINYLCHOLINE CHLORIDE 100 MG/5 ML SYR IV ONE (10:52)
[2017-11-24] MEDS ORDERED: fentaNYL (PF) 50 MCG/ML 2 ML AMP ONE (10:52)
[2017-11-24] MEDS ORDERED: ePHEDrine SULFATE/0.9% NACL/PF 50 MG/5 ML SYRINGE IV ONE (10:52)
[2017-11-24] MEDS ORDERED: LIDOCAINE 1% INJ 10MG/ML (20 ML MDV) ONE (10:52)
[2017-11-24 10:53] LABS: Glucose,Whole Blood 101 mg/dL (75-99)
--- NOTE | 2017-11-24 11:54 | P.PCN ---
Date of Procedure: 11/24/17 Preoperative Diagnosis: Lower extremity occlusive disease and diabetes with ulcerations of the right foot. Postoperative Diagnosis: Same Procedure(s) Performed: Amputation right second fourth and fifth toes through proximal phalanx. Anesthesia: STEVEN Surgeon: Rangel Looney Estimated Blood Loss (ml): 40 Pathology: none sent (Disposal only) Condition: stable Disposition: PACU Indications for Procedure: The patient had an ulcer on the tip of the right second toe into the bone. He developed necrosis of the right fifth toe as well. In view of the only remaining toe being the fourth, it would've been so vulnerable that we chose to amputated as well. Operative Findings: There was excellent blood supply proximally in all 3 areas. Description of Procedure: With the patient spine position, under benefit of general anesthesia, we prepped and draped in standard fashion. We made a fishmouth incisions at the distal portions of the second and fourth toe. On the fifth toe this was more the base of the toe. Each toe was removed then with a Wilman and the bone taken up above the level of the skin incision. We irrigated with saline and after fashioning the edges on the small toe we closed all incisions with interrupted 4 -0 nylon. Hemostasis was satisfactory. Sterile dressings were applied. The patient tolerated the procedure well and was taken recovery room in stable condition.
[2017-11-24 12:02] LABS: Glucose,Whole Blood 85 mg/dL (75-99)
[2017-11-24 12:05] VITALS: TEMP 97.3
[2017-11-24 12:37] VITALS: PULSE 66
[2017-11-24 12:57] VITALS: BP 146/65
[2017-11-24 14:02] LABS: Glucose,Whole Blood 85 mg/dL (75-99)
== END 2017-11-24 13:59 | disposition home or self-care (01) ==
LOC: OR 10:06
PROVIDERS: ATTEND Thoracic Surgery (Cardiothoracic Vascular Surgery)
DX: E11.621 Type 2 diabetes mellitus with foot ulcer (principal); L97.514 Non-pressure chronic ulcer of other part of right foot with necrosis of bone; E11.51 Type 2 diabetes mellitus with diabetic peripheral angiopathy without gangrene; E11.319 Type 2 diabetes mellitus with unspecified diabetic retinopathy without macular edema; H54.61 Unqualified visual loss, right eye, normal vision left eye; E11.22 Type 2 diabetes mellitus with diabetic chronic kidney disease; I12.9 Hypertensive chronic kidney disease with stage 1 through stage 4 chronic kidney disease, or unspecified chronic kidney disease; N18.3 Chronic kidney disease, stage 3 (moderate); E11.40 Type 2 diabetes mellitus with diabetic neuropathy, unspecified; I48.91 Unspecified atrial fibrillation; I25.10 Atherosclerotic heart disease of native coronary artery without angina pectoris; E78.5 Hyperlipidemia, unspecified; K76.9 Liver disease, unspecified; N42.9 Disorder of prostate, unspecified; I25.2 Old myocardial infarction; Z89.411 Acquired absence of right great toe; Z95.1 Presence of aortocoronary bypass graft; Z95.5 Presence of coronary angioplasty implant and graft; Z79.2 Long term (current) use of antibiotics; Z79.01 Long term (current) use of anticoagulants; Z79.82 Long term (current) use of aspirin; Z79.4 Long term (current) use of insulin; Z79.899 Other long term (current) drug therapy; Z88.1 Allergy status to other antibiotic agents; Z88.2 Allergy status to sulfonamides; Z87.891 Personal history of nicotine dependence; I77.9 Disorder of arteries and arterioles, unspecified
CPT/HCPCS: 28160 ×3; J2405; J0690

== ENCOUNTER → 2018-01-28 | Outpatient (CLI) | payer MEDICARE ==
--- NOTE | 2018-01-29 13:37 | US ---
EXAMINATION TYPE: US kidneys/renal and bladder DATE OF EXAM: 01/28/2018 COMPARISON: US dated 08/30/2015 CLINICAL HISTORY: N18.3 CKD; Diabetic EXAM MEASUREMENTS: Right Kidney: 11.4 x 5.0 x 4.5 cm Left Kidney: 11.7 x 5.5 x 5.3 cm Post Void Residual Volume: patient stated was unable to void Right Kidney: No hydronephrosis or masses seen. There is mild cortical renal thinning Left Kidney: No hydronephrosis or masses seen. There is mild cortical renal thinning. Bladder: not fully distended Bilateral Jets seen: not after 3 minute observation There is no evidence for hydronephrosis at this point in time. No nephrolithiasis is seen. No reema s are identified. IMPRESSION: Mild cortical renal thinning compatible with mild medical renal disease. No hydronephrosis or nephrol ithiasis.
== END ==
LOC: RADUSWWP 15:31
PROVIDERS: ATTEND Internal Medicine Nephrology
DX: N18.3 Chronic kidney disease, stage 3 (moderate) (principal)
CPT/HCPCS: 76770

== ENCOUNTER 2018-02-28 10:51 | Emergency (ER) | payer MEDICARE ==
[2018-02-28 11:01] VITALS: RESP 16
[2018-02-28] MEDS ORDERED: MECLIZINE 12.5 MG TAB PO STA (11:32)
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
--- NOTE | 2018-02-28 11:47 | XR ---
EXAMINATION TYPE: XR chest 2V DATE OF EXAM: 02/28/2018 COMPARISON: 07/02/17 HISTORY: Shortness of breath TECHNIQUE: Frontal and lateral views of the chest are obtained. FINDINGS: Scattered senescent parenchymal changes noted. Hyperinflation compatible with COPD. No evidence for infiltrate. No evidence for atelectasis. Heart size is stable. Mediastinal structures are stable and grossly unremarkable. No evidence for hilar prominence. Degenerative changes dorsal spine. IMPRESSION: 1. No evidence for acute pulmonary disease.
[2018-02-28 12:01] LABS: Albumin 3.9 g/dL (3.5-5.0); Calcium 9.3 mg/dL (8.4-10.2); Potassium 4.6 mmol/L (3.5-5.1); Total Protein 6.7 g/dL (6.3-8.2)
[2018-02-28 12:05] LABS: INR 1.9 (<1.2); Prothrombin Time 17.1 sec (9.0-12.0)
[2018-02-28 12:09] LABS: Basophils % (A) 0 %; Eosinophils # (A) 0.6 k/uL (0-0.7); Eosinophils % (A) 5 %; HCT 44.5 % (39.0-53.0); HGB 15.1 gm/dL (13.0-17.5); Lymphocytes # (A) 1.1 k/uL (1.0-4.8); Lymphocytes % (A) 9 %; MCH 26.9 pg (25.0-35.0); MCV 79.3 fL (80.0-100.0); Monocytes # (A) 0.9 k/uL (0-1.0); Monocytes % (A) 7 %; Neutrophils # (A) 9.1 k/uL (1.3-7.7); Neutrophils % (A) 77 %; Platelet Count 193 k/uL (150-450); RBC 5.62 m/uL (4.30-5.90); RDW 14.7 % (11.5-15.5); WBC 11.9 k/uL (3.8-10.6)
[2018-02-28] MEDS ORDERED: SODIUM CHLORIDE 0.9% 500 ML 500 ML IV ONE (12:33)
--- NOTE | 2018-02-28 12:38 | CT ---
EXAMINATION TYPE: CT brain wo con DATE OF EXAM: 02/28/2018 COMPARISON: 08/16/2015 HISTORY: Pain CT DLP: 1351.4 mGycm Automated exposure control for dose reduction was used. FINDINGS: Generalized degenerative change of the greater central component. Periventricular low attenuation non specific. No midline shift or mass effect. Intracranial atherosclerotic changes are noted. Calvarium intact. Prominent bony density along the inner table suggestive of an osteoma measuring 7 m m right parietal convexity. IMPRESSION: GENERALIZED DEGENERATIVE CHANGE OF THE GREATER CENTRAL COMPONENT CONSIDER NORMAL PRESSURE HYDROCEPHAL US. FINDINGS ARE SIMILAR TO THE PRIOR EXAM. NONSPECIFIC WHITE MATTER CHANGES MOST TYPICAL OF REMOTE M ICROVASCULAR ISCHEMIA.
[2018-02-28 13:42] VITALS: BP 149/75; PULSE 63; TEMP 97.8
== END 2018-02-28 13:36 | disposition home or self-care (01) ==
LOC: EC 10:51
DX: I13.0 Hypertensive heart and chronic kidney disease with heart failure and stage 1 through stage 4 chronic kidney disease, or unspecified chronic kidney disease (principal); E11.22 Type 2 diabetes mellitus with diabetic chronic kidney disease; N18.9 Chronic kidney disease, unspecified; I50.9 Heart failure, unspecified; R42 Dizziness and giddiness; I48.91 Unspecified atrial fibrillation; I25.10 Atherosclerotic heart disease of native coronary artery without angina pectoris; E78.5 Hyperlipidemia, unspecified; I25.2 Old myocardial infarction; E11.319 Type 2 diabetes mellitus with unspecified diabetic retinopathy without macular edema; Z79.01 Long term (current) use of anticoagulants; Z79.82 Long term (current) use of aspirin; Z79.4 Long term (current) use of insulin; Z79.899 Other long term (current) drug therapy; Z88.1 Allergy status to other antibiotic agents; Z88.2 Allergy status to sulfonamides; Z87.891 Personal history of nicotine dependence; Z95.1 Presence of aortocoronary bypass graft; Z95.5 Presence of coronary angioplasty implant and graft; Z89.411 Acquired absence of right great toe
CPT/HCPCS: 36415; 70450; 71046; 80053; 83880; 84484; 85025; 85610; 93005; 96360; 99284

== ENCOUNTER → 2019-09-20 | Outpatient (CLI) | payer MEDICARE ==
--- NOTE | 2019-09-20 13:24 | US ---
EXAMINATION TYPE: US kidneys/renal and bladder DATE OF EXAM: 09/20/2019 COMPARISON: Renal ultrasound January 28, 2018 CLINICAL HISTORY: N18.3 Chronic Kidney Disease Stage 3. CKD stage III EXAM MEASUREMENTS: Right Kidney: 11.2 x 5.0 x 4.5cm Left Kidney: 11.1 x 6.1 x 4.6cm Right Kidney: thin renal cortex, no evidence of hydronephrosis Left Kidney: lobulated contour, no evidence of hydronephrosis Bladder: not fully distended Bilateral Jets seen: yes When scanning the right kidney adjacent liver is heterogeneously hyperechoic suggesting diffuse fatty infiltration similar to prior. There is no evidence for hydronephrosis at this point in time. No nephrolithiasis is seen. No reema s are identified. The urinary bladder is not greatly distended. Bilateral ureteral jets are seen. IMPRESSION: Evidence of chronic medical renal disease bilaterally. No hydronephrosis noted.
== END | disposition home or self-care (01) ==
LOC: RADUSWWP 10:41
PROVIDERS: ATTEND Internal Medicine
DX: N18.3 Chronic kidney disease, stage 3 (moderate) (principal)
CPT/HCPCS: 76770

== ENCOUNTER 2022-07-21 08:58 | Emergency (ER) | payer MEDICARE ==
[2022-07-21] MEDS ORDERED: SODIUM CHLORIDE 0.9% 500 ML 500 ML IV STA (09:10)
[2022-07-21] MEDS ORDERED: SODIUM CHLORIDE 0.9% 500 ML 1,000 ML IV STA (09:11)
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
[2022-07-21 09:59] LABS: Calcium 8.1 mg/dL (8.4-10.2)
[2022-07-21 10:10] LABS: Basophils # (A) 0.2 k/uL (0-0.2); Basophils % (A) 2 %; Eosinophils # (A) 0.5 k/uL (0-0.7); Eosinophils % (A) 5 %; HCT 46.5 % (39.0-53.0); HGB 16.1 gm/dL (13.0-17.5); Lymphocytes # (A) 1.1 k/uL (1.0-4.8); Lymphocytes % (A) 11 %; MCH 27.9 pg (25.0-35.0); MCHC 34.5 g/dL (31.0-37.0); MCV 80.8 fL (80.0-100.0); Monocytes # (A) 1.4 k/uL (0-1.0); Monocytes % (A) 14 %; Neutrophils # (A) 6.7 k/uL (1.3-7.7); Neutrophils % (A) 66 %; Platelet Count 125 k/uL (150-450); RBC 5.76 m/uL (4.30-5.90); WBC 10.2 k/uL (3.8-10.6)
[2022-07-21 10:14] LABS: Potassium 5.2 mmol/L (3.5-5.1)
--- NOTE | 2022-07-21 10:30 | XR ---
EXAMINATION TYPE: XR chest 2V DATE OF EXAM: 07/21/2022 COMPARISON: Chest x-ray February 29, 2020 HISTORY: Cough. TECHNIQUE: Frontal and lateral views of the chest are obtained. FINDINGS: Overlying sternal wires and and mediastinal clips are redemonstrated. Persistent cardiomeg leopoldo. New reticular increased opacities bilaterally greatest in the periphery. No pleural effusion or pneumothorax is seen bilaterally. Osseous structures are intact. IMPRESSION: Chronic changes and cardiomegaly with predominant peripheral opacities could reflect aty pical infection such as covid-19 correlate to exclude. Interval development of parenchymal fibrosis a lso could have this appearance. Correlation with more recent x-ray and/or CT would be beneficial.
[2022-07-21 10:39] LABS: Glucose,Whole Blood 75 mg/dL (70-110)
[2022-07-21 12:05] VITALS: BP 124/66; PULSE 59; RESP 19; TEMP 98.1
--- NOTE | 2022-07-21 12:32 | ED ---
Medical Decision Making - Lab Data Result diagrams: 07/21/22 09:29 07/21/22 09:29 Lab Results 07/21/22 07/21/22 07/21/22 Range/Units 09:15 09:29 09:29 WBC 10.2 (3.8-10.6) k/uL RBC 5.76 (4.30-5.90) m/uL Hgb 16.1 (13.0-17.5) gm/dL Hct 46.5 (39.0-53.0) % MCV 80.8 (80.0-100.0) fL MCH 27.9 (25.0-35.0) pg MCHC 34.5 (31.0-37.0) g/dL RDW 15.0 (11.5-15.5) % Plt Count 125 L (150-450) k/uL MPV 11.0 Neutrophils % 66 % Lymphocytes % 11 % Monocytes % 14 % Eosinophils % 5 % Basophils % 2 % Neutrophils # 6.7 (1.3-7.7) k/uL Lymphocytes # 1.1 (1.0-4.8) k/uL Monocytes # 1.4 H (0-1.0) k/uL Eosinophils # 0.5 (0-0.7) k/uL Basophils # 0.2 (0-0.2) k/uL Sodium 135 L (137-145) mmol/L Potassium 5.2 H (3.5-5.1) mmol/L Chloride 102 (98-107) mmol/L Carbon Dioxide 26 (22-30) mmol/L Anion Gap 7 mmol/L BUN 51 H (9-20) mg/dL Creatinine 2.99 H (0.66-1.25) mg/dL Est GFR (CKD-EPI)AfAm 22 (>60 ml/min/1.73 sqM) Est GFR (CKD-EPI)NonAf 19 (>60 ml/min/1.73 sqM) Glucose 55 L (74-99) mg/dL POC Glucose (mg/dL) (70-110) mg/dL POC Glu [place]ave [place] Hand ID Plasma Lactic Acid Brian (0.7-2.0) mmol/L Calcium 8.1 L (8.4-10.2) mg/dL Influenza Type A (PCR) Not Detected (Not Detectd) Influenza Type B (PCR) Not Detected (Not Detectd) RSV (PCR) Not Detected (Not Detectd) SARS-CoV-2 (PCR) Detected A (Not Detectd) 07/21/22 07/21/22 Range/Units 09:29 10:38 WBC (3.8-10.6) k/uL RBC (4.30-5.90) m/uL Hgb (13.0-17.5) gm/dL Hct (39.0-53.0) % MCV (80.0-100.0) fL MCH (25.0-35.0) pg MCHC (31.0-37.0) g/dL RDW (11.5-15.5) % Plt Count (150-450) k/uL MPV Neutrophils % % Lymphocytes % % Monocytes % % Eosinophils % % Basophils % % Neutrophils # (1.3-7.7) k/uL Lymphocytes # (1.0-4.8) k/uL Monocytes # (0-1.0) k/uL Eosinophils # (0-0.7) k/uL Basophils # (0-0.2) k/uL Sodium (137-145) mmol/L Potassium (3.5-5.1) mmol/L Chloride (98-107) mmol/L Carbon Dioxide (22-30) mmol/L Anion Gap mmol/L BUN (9-20) mg/dL Creatinine (0.66-1.25) mg/dL Est GFR (CKD-EPI)AfAm (>60 ml/min/1.73 sqM) Est GFR (CKD-EPI)NonAf (>60 ml/min/1.73 sqM) Glucose (74-99) mg/dL POC Glucose (mg/dL) 75 (70-110) mg/dL POC Glu [place] Hand ID Lisa Sutton Plasma Lactic Acid Brian 1.5 (0.7-2.0) mmol/L Calcium (8.4-10.2) mg/dL Influenza Type A (PCR) (Not Detectd) Influenza Type B (PCR) (Not Detectd) RSV (PCR) (Not Detectd) SARS-CoV-2 (PCR) (Not Detectd) Disposition Clinical Impression: Coronavirus infection Disposition: HOME SELF-CARE Condition: Good Instructions (If sedation given, give patient instructions): Coronavirus Disease 2019 (COVID-19) Prescriptions: Molnupiravir [Lagevrio (Eua)] 800 mg PO BID 5 Days #40 cap Molnupiravir [Lagevrio (Eua)] 800 mg PO BID 5 Days #40 cap Ondansetron Odt [Zofran Odt] 4 mg PO Q8HR PRN #12 tab PRN Reason: Nausea Is patient prescribed a controlled substance at d/c from ED?: No Referrals: Lelia Brown MD [Primary Care Provider] - 1-2 days
== END 2022-07-21 12:06 | disposition home or self-care (01) ==
LOC: EC 08:58
DX: U07.1 COVID-19 (principal); E11.319 Type 2 diabetes mellitus with unspecified diabetic retinopathy without macular edema; E11.22 Type 2 diabetes mellitus with diabetic chronic kidney disease; E11.36 Type 2 diabetes mellitus with diabetic cataract; I12.9 Hypertensive chronic kidney disease with stage 1 through stage 4 chronic kidney disease, or unspecified chronic kidney disease; N18.30 Chronic kidney disease, stage 3 unspecified; I25.10 Atherosclerotic heart disease of native coronary artery without angina pectoris; I25.2 Old myocardial infarction; I48.91 Unspecified atrial fibrillation; E78.5 Hyperlipidemia, unspecified; Z79.4 Long term (current) use of insulin; Z79.01 Long term (current) use of anticoagulants; Z79.82 Long term (current) use of aspirin; Z79.899 Other long term (current) drug therapy; Z88.1 Allergy status to other antibiotic agents; Z88.2 Allergy status to sulfonamides; Z87.891 Personal history of nicotine dependence; Z95.5 Presence of coronary angioplasty implant and graft
CPT/HCPCS: 36415; 71046; 80048; 83605; 85025; 87636; 93005; 96360; 96361; 99284

== ENCOUNTER → 2023-04-29 | Outpatient (CLI) | payer MEDICARE ==
--- NOTE | 2023-04-29 23:23 | MR ---
EXAMINATION TYPE: MR lumbar spine wo con DATE OF EXAM: 04/29/2023 COMPARISON: None HISTORY: Lower back pain, radiates into left leg. CONTRAST: 0 mL intravenous Gadavist. TECHNIQUE: Multiplanar, multisequence images of the lumbar spine were acquired. FINDINGS: L5-S1: There is mild narrowing of the disc height. Disc desiccation is present. Disc bulge is present with mild anterior epidural space impression. No AP spinal canal stenosis is present. There is moder ate left and minimal right foraminal narrowing. L4-L5: Facet hypertrophy is present with ligamentum flavum laxity. This is contributing to lateral ca nal stenosis at this level. Minimal disc bulge has anterior thecal sac flattening. No AP spinal canal stenosis is present. Mild to moderate bilateral foraminal narrowing is present slightly greater on t he right. Disc desiccation is present. L3-L4: Facet hypertrophy is present with ligamentum flavum laxity. Broad-based disc bulge has mild an terior thecal sac flattening. No AP spinal canal stenosis is present. Disc desiccation is present. L2-L3: No significant disc bulge or disc herniation. No spinal canal stenosis. Facet hypertrophy is present. No foraminal stenosis is present. Disc desiccation is present. L1-L2: No significant disc bulge or disc herniation. No spinal canal stenosis. No foraminal stenosi s. T12-L1: No significant disc bulge or disc herniation. No spinal canal stenosis. No foraminal stenos is. IMPRESSION: 1.
== END | disposition home or self-care (01) ==
LOC: RADMRIMAIN 10:45
PROVIDERS: ATTEND Orthopaedic Surgery
DX: M47.26 Other spondylosis with radiculopathy, lumbar region (principal); M51.16 Intervertebral disc disorders with radiculopathy, lumbar region; M24.28 Disorder of ligament, vertebrae
CPT/HCPCS: 72148

== ENCOUNTER → 2023-06-24 | Outpatient (CLI) | payer MEDICARE ==
[2023-06-24 10:32] VITALS: BP 122/73; PULSE 75; RESP 16; TEMP 97.3
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
== END ==
LOC: PNWHC3 09:12
PROVIDERS: ATTEND Specialist
DX: M51.36 Other intervertebral disc degeneration, lumbar region (principal); Z87.891 Personal history of nicotine dependence; Z79.82 Long term (current) use of aspirin; M19.90 Unspecified osteoarthritis, unspecified site; I48.91 Unspecified atrial fibrillation; I25.10 Atherosclerotic heart disease of native coronary artery without angina pectoris; E78.5 Hyperlipidemia, unspecified; I25.2 Old myocardial infarction; E11.22 Type 2 diabetes mellitus with diabetic chronic kidney disease; I12.9 Hypertensive chronic kidney disease with stage 1 through stage 4 chronic kidney disease, or unspecified chronic kidney disease; N18.30 Chronic kidney disease, stage 3 unspecified; N40.0 Benign prostatic hyperplasia without lower urinary tract symptoms; Z87.19 Personal history of other diseases of the digestive system; Z79.4 Long term (current) use of insulin; Z79.899 Other long term (current) drug therapy; Z79.01 Long term (current) use of anticoagulants; Z88.1 Allergy status to other antibiotic agents; Z88.2 Allergy status to sulfonamides; Z88.5 Allergy status to narcotic agent; Z88.8 Allergy status to other drugs, medicaments and biological substances
CPT/HCPCS: 99211

== ENCOUNTER 2023-08-10 12:22 | Day surgery (SDC) | payer MEDICARE ==
[~2023-08-10 12:22] MED LIST changes: -DEXAMETHASONE SOD PHOSPHATE 10 MG/ML 1 ML VIAL IV ONE; -HYDROmorphone 0.5 MG/0.5 ML SYRINGE IVP PRN; -LIDOCAINE 1% 20 ML VIAL (10MG/ML) FOR IV START INTRADERMA PRN; -MIDAZOLAM 2 MG/2 ML VIAL IV PRN; -ONDANSETRON 4 MG/2 ML VIAL IVP ONE; -SCOPOLAMINE 1.5MG/72HR PATCH TRANSDERM ONE; -ceFAZolin IN SWFI 2 GM/20 ML SYRINGE IVP ONE
[2023-08-10 13:21] LABS: Glucose,Whole Blood 207 mg/dL (70-110)
[2023-08-10] MEDS: INSULIN ASPART (NovoLOG) 100 UNIT/ML VIAL SQ ONE (13:30)
[2023-08-10 13:42] LABS: Prothrombin Time 10.7 sec (10.0-12.5)
[2023-08-10] MEDS ORDERED: methylPREDNISolone ACETATE 40 MG/ML 1 ML VIAL ONE (13:54)
[2023-08-10] MEDS ORDERED: IOPAMIDOL M200 10 ML VIAL ONE (13:54)
[2023-08-10 13:55] VITALS: TEMP 98.7
--- NOTE | 2023-08-10 14:03 | P.PCN ---
Date of Procedure: 08/10/23 Procedure(s) Performed: PREOPERATIVE DIAGNOSIS: 1-Lumbar radiculopathy . 2-lumbar degenerative disc disease. POSTOPERATIVE DIAGNOSIS: 1-lumbar radiculopathy. 2-lumbar degenerative disc disease. PROCEDURE 1. Transforaminal epidural steroid injection under fluoroscopic guidance at left L5-S1 level. (Fluoroscopy images stored on file in the radiology Department ) 2. Lumbar epidurogram . ANESTHESIA: Local with 1% lidocaine 3 ml. EBL: Minimal PROCEDURE INDICATION: The patient with low back pain and radiculopathy symptoms unresponsive to conservative treatment. PROCEDURE DESCRIPTION / TECHNIQUE: The patient was seen and identified in the preoperative area. Risks, benefits, complications, and alternatives were discussed with the patient. The patient agreed to proceed with the procedure and signed the consent. IV was started, and vital signs were stable. Patient was taken to the OR and time out was completed. The patient was placed in the prone position on procedure table and a pillow was placed under the abdomen to reduce lumbar lordosis. The lumbosacral area was prepped and draped in the usual sterile fashion. Critical pause was taken. Vital signs were closely monitored during the procedure. Using oblique fluoroscopy, the chin of the ``Justo dog at left L5-S1 level was identified, and the skin and deeper tissues just below was localized with 1% lidocaine. Subsequently, a 22-gauge 5-inch spinal needle was advanced under a tunneled view fluoroscopic guidance just underneath the chin of the ``Justo dog at the left L5-S1 Under lateral fluoroscopy, the needle was then advanced to the posterior border of the interforaminal space. After negative aspiration of CSF and blood and with no paresthesias, 1 mL Isovue 200 contrast dye was injected excellent epidurogram and outlining of the nerve root Subsequently, 3 mL of block solution containing 40 mg Depo-Medrol and 2 mL of 0.9% normal saline PF was injected. The needle removed, skin was cleansed, and bandages were applied. COMPLICATIONS:none DISPOSITION / PLANS: The patient was placed in a supine position and transferred to the recovery area in a stable condition for observation. There was no evidence of lower extremity motor or sensory deficit after the procedure. Patient was discharged from the recovery room after meeting discharge criteria. Home discharge instructions were given to the patient by the staff. The patient was reexamined prior to discharge.
[2023-08-10 14:16] LABS: Glucose,Whole Blood 227 mg/dL (70-110)
[2023-08-10 14:39] VITALS: BP 129/72; PULSE 70
[2023-08-10 14:40] VITALS: RESP 16
--- NOTE | 2023-08-10 17:42 | FL ---
EXAMINATION TYPE: FL guided pain mgmt statistic DATE OF EXAM: 08/10/2023 FLUOROSCOPY Fluoroscopy time of 12 seconds was used during lumbar transforaminal epidural injection. image/s docu ment/s the procedure. .[id number] mGycm2 DAP
== END 2023-08-10 14:41 | disposition home or self-care (01) ==
LOC: ORPAIN 12:22
PROVIDERS: ATTEND Specialist
DX: M51.16 Intervertebral disc disorders with radiculopathy, lumbar region (principal); Z88.1 Allergy status to other antibiotic agents; Z88.8 Allergy status to other drugs, medicaments and biological substances; Z79.01 Long term (current) use of anticoagulants; Z79.82 Long term (current) use of aspirin
CPT/HCPCS: 85610; 64483; Q9966; J1010

== ENCOUNTER → 2023-08-20 | Outpatient (CLI) | payer MEDICARE ==
--- NOTE | 2023-08-20 17:01 | US ---
EXAMINATION TYPE: US kidneys/renal and bladder DATE OF EXAM: 08/20/2023 COMPARISON: 09/20/2019 CLINICAL INDICATION: Male, 78 years old with history of N18.32 CHRONIC KIDNEY DISEASE, STAGE 3B; EXAM MEASUREMENTS: Right Kidney: 11.3 x 5.6 x 6.3 cm Left Kidney: 11.4 x 4.6 x 4.4 cm Post Void Residual Volume: NA mL Right Kidney: WNL Left Kidney: WNL Bladder: Not fully distended Bilateral Jets seen: Not able to assess Normal Post Void Residual: NA There is no evidence for hydronephrosis at this point in time. No nephrolithiasis is seen. No reema s are identified. There is mild thinning of the renal cortices with slight increase in the echotexture indicating mild medical renal disease. IMPRESSION: 1. Findings suggestive of mild medical renal disease. 2. No solid renal mass, renal calcification or hydronephrosis. 3. Urinary bladder not evaluated due to nondistention
== END | disposition home or self-care (01) ==
LOC: RADUSWWP 13:29
PROVIDERS: ATTEND Internal Medicine Nephrology
DX: N18.32 Chronic kidney disease, stage 3b (principal)
CPT/HCPCS: 76770

== ENCOUNTER → 2023-09-01 | Outpatient (CLI) | payer MEDICARE ==
[2023-09-01 12:10] VITALS: BP 132/72; PULSE 72; RESP 15; TEMP 98.5
--- NOTE | 2023-09-01 15:50 | P.PAINPG ---
PQRS Measure Charge Sheet Comment: HISTORY OF PRESENT ILLNESS: A 77 yr old wheelchair bound male w at side presents today w severe and chronic LBP > 5 yrs secondary to DDD, spondylosis and facet arthropathy without myelopathy for evaluation s/p L TFESI L5-S1 #1. Pt states he experienced 50 % pain relief x 2 wk s/p procedure. Pt states pain level is provoked at 9 /10 in intensity, constant, localized in the lower lumbar spine, predominantly axial, throbbing in character w occasional shooting pain towards the L hip, buttock and LE. Pain is provoked by PT x 2 wks in Apr 2023 and standing/ walking for periods > 10 min. Pain is alleviated w physician guided stretches every morning since Apr 2023, heat, medications, manual massage, repositioning and rest. Oswestry axial pain score at 26. Interventional procedures include L TFESI L5-S1 x1 Medications include Tramadol, Tyl ES REVIEW OF ORGAN SYSTEMS: CONSTITUTIONAL: No fevers or chills. No recent weight loss. NEUROLOGICAL: + numbness and tingling along the distal extremities. No seizure disorders or headaches. MUSCULOSKELETAL: + pain PSYCHIATRIC: Denies current depression or suicidal thoughts. Physical Examinations : Constitutional : Cooperative , not in acute distress . Neurologic : Cranial nerve II to XII intact. No focal neurological deficits. Psychiatric : alert & oriented x 3. Matching mood & appropriate affect. Judgment & insight intact. Musculoskeletal : Cervical Spine Motor strength in the deltoid and biceps: Normal right side. Normal Left side Motor strength biceps and the wrist extensors: Normal right side . Normal left side Motor strength in the triceps muscle: Normal right side. Normal left side Deep tendon reflexes: Normal at the biceps. Normal at Brachioradialis. Normal at triceps Vertebral body tenderness to deep palpation over Cervical facet loading test: positive bilaterally Spurling test: positive bilaterally Neck distraction test: positive bilaterally Fabio sign: positive bilaterally Lumbar spine Motor strength lower extremities ,thigh and legs 5/5 Right side , 5/5 Left side Deep tendon reflexes : Normal Knee Jerk. Normal Ankle Jerk Vertebral body tenderness over L5 Lorenzo Test positive Lumbar facet Loading Test: positive Right / positive Left Range of motion of the lumbar spine Flexion 30 degrees, extension 10 degrees Straight Leg Raise test: Left/ Right positive at 20 degrees Erick test: positive right / positive left. Severe tenderness over the Sacroiliac joint on the Right / Left sides Gaenslen test: positive bilaterally Seated flexion test: positive bilaterally. Sacral spine : Severe tenderness over the Sacroiliac joint: right side / left side Range of motion: Flexion of the lumbar spine <60 degrees Range of motion: Extension of the lumbar spine <20 degrees Gaenslen's Test positive Erick test: positive right side / left side Thigh Thrust Test Sacral Thrust Test Imaging: MRI noncontrast of the lumbar spine from 04/29/2023 reviewed Assessment/ Plan : Lumbar DDD Recommendation of L TFESI L5-S1 #2 and medication management. May need a series of injections for optimal pain relief. Risks, benefits of procedure discussed and patient verbalized understanding. Admits to anti- coagulant use or medical history of diabetes. Protocol for discontinuation/ continuation of medications humberto procedure discussed. Tylenol #3 #60 w 1 RF. Opiate/ narcotic agreement signed 09/01/23. Discontinue Tramadol, use side effects, adverse reactions, safe storage discussed. Pt acknowledged understanding. All questions answered. I have spent greater than 30 minutes on patient care today. Dr Urbina was available by phone for the evaluation of this patient. The time was used to review the medical records including relevant urine studies and Prescription history (MAPs), review of the available imaging, evaluation and examination of the patient, coordination of care with the medical staff and if applicable referring physicians, as well as creation of the medical record PQRS Narrative: Smoking Status Former smoker Hx Alcohol Use (MH) No Home Medications: Ambulatory Orders Aspirin EC [Ecotrin Low Dose] 81 mg PO DAILY 02/13/14 INSULIN ASPART (NovoLOG) [NovoLOG (formulary)] See Protocol SQ AC-TID 02/13/14 Insulin Glargine [Lantus Vial] 30 units SQ HS 02/13/14 Atorvastatin [Lipitor] 40 mg PO HS 06/30/17 Ergocalciferol [Vitamin D2 (1250 Mcg = 25984 Iu)] 1,250 mcg PO Q30D 07/21/22 Eucerin Cream 1 applic TOPICAL BID 07/21/22 Warfarin [Coumadin] 2.5 mg PO SUTUTHSA@209907/21/22 Warfarin [Coumadin] 3.75 mg PO MOWEFR@209907/21/22 diazePAM [Valium] 5 mg PO DAILY PRN 1 Days #2 tab 06/24/23 Chlorthalidone [Hygroton] 25 mg PO QAM 08/06/23 Insulin Glargine [Lantus Vial] 50 unit SQ QAM 08/06/23 Losartan [Cozaar] 50 mg PO QAM 08/06/23 Pregabalin [Lyrica] 100 mg PO BID 08/06/23 Acetaminophen-Codeine 300-30mg [Tylenol w/codeine #3] 1 tab PO BID PRN 30 Days #60 tablet 09/01/23 Controlled Substance Measures - Controlled Substance Measures Is patient prescribed a controlled substance at discharge?: Yes When asked, does pt state using other controlled substances?: No If prescribed controlled substance>3 days was MAPS reviewed?: Yes If Rx opioid, was Start Talking consent form obtained?: Yes Was information provided regarding opioid addiction?: Yes
== END ==
LOC: PNWHC3 10:58
PROVIDERS: ATTEND Specialist
DX: M51.36 Other intervertebral disc degeneration, lumbar region (principal); G89.29 Other chronic pain; M47.816 Spondylosis without myelopathy or radiculopathy, lumbar region; Z87.891 Personal history of nicotine dependence; Z88.1 Allergy status to other antibiotic agents; Z88.2 Allergy status to sulfonamides; Z88.8 Allergy status to other drugs, medicaments and biological substances
CPT/HCPCS: 99211

== ENCOUNTER 2023-09-17 00:01 | Emergency (ER) | payer MEDICARE ==
[2023-09-17 01:54] LABS: Basophils # (A) 0.1 k/uL (0-0.2); Basophils % (A) 0 %; Eosinophils # (A) 0.3 k/uL (0-0.7); Eosinophils % (A) 2 %; HCT 47.6 % (39.0-53.0); HGB 15.3 gm/dL (13.0-17.5); Lymphocytes # (A) 0.5 k/uL (1.0-4.8); Lymphocytes % (A) 3 %; MCH 26.6 pg (25.0-35.0); MCHC 32.2 g/dL (31.0-37.0); MCV 82.5 fL (80.0-100.0); Mean Platelet Volume 9.3; Monocytes # (A) 0.8 k/uL (0-1.0); Monocytes % (A) 5 %; Neutrophils # (A) 15.7 k/uL (1.3-7.7); Neutrophils % (A) 90 %; Platelet Count 213 k/uL (150-450); RBC 5.77 m/uL (4.30-5.90); RDW 15.4 % (11.5-15.5); WBC 17.4 k/uL (3.8-10.6)
[2023-09-17 02:06] LABS: ALT 251 U/L (4-49); African American GFR (CKD) 38 (>60 ml/min/1.73 sqM); Albumin 3.8 g/dL (3.5-5.0); Anion Gap 12 mmol/L; Blood Urea Nitrogen 33 mg/dL (9-20); Calcium 9.1 mg/dL (8.4-10.2); Carbon Dioxide 21 mmol/L (22-30); Chloride 107 mmol/L (98-107); Glucose 173 mg/dL (74-99); Lipase 100 U/L (23-300); Non-African American GFR(CKD) 33 (>60 ml/min/1.73 sqM); Sodium 140 mmol/L (137-145); Total Bilirubin 2.3 mg/dL (0.2-1.3); Total Protein 6.4 g/dL (6.3-8.2)
[2023-09-17 02:18] LABS: AST 432 U/L (17-59); Alkaline Phosphatase 443 U/L (38-126); Potassium 4.9 mmol/L (3.5-5.1)
[2023-09-17 04:41] LABS: Glucose,Whole Blood 188 mg/dL (70-110)
[2023-09-17 04:46] LABS: Appearance,Urine Clear (Clear); Bacteria,Urine Rare /hpf; Bilirubin,Urine Negative (Negative); Blood,Urine Negative (Negative); Color,Urine Yellow; Glucose,Urine (UA) Trace (Negative); Hyaline Casts,Urine 1 /lpf (0-2); Ketones,Urine Negative (Negative); Leukocyte Esterase,Urine Negative (Negative); Mucus,Urine Rare /hpf; Nitrite,Urine Negative (Negative); PH, Urine 6.5 (5.0-8.0); Protein,Urine 2+ (Negative); RBC,Urine 2 /hpf (0-5); Specific Gravity,Urine 1.016 (1.001-1.035); WBC,Urine 1 /hpf (0-5)
--- NOTE | 2023-09-17 06:29 | XR ---
EXAM: XR Abdomen, 1 View CLINICAL HISTORY: ITS.REASON XR Reason: abdominal pain TECHNIQUE: Frontal supine view of the abdomen/pelvis. COMPARISON: No relevant prior studies available. IMPRESSION: 1. Evaluation for free air limited by supine imaging. 2. No acute findings on single view of the abdomen. Consider cross- sectional imaging if there is further concern.
[2023-09-17] MEDS: SODIUM CHLORIDE 0.9% 1,000 ML IV SCH (07:09)
[2023-09-17 08:06] VITALS: TEMP 98.4
[2023-09-17] MEDS: PIPERACILLIN-TAZOBACTAM 3.375 GM in SODIUM CHLORIDE 0.9% 100 ML IVPB SCH (08:47)
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
[2023-09-17] MEDS ORDERED: MORPHINE SULFATE 4 MG/ML SYRINGE IVP PRN (09:18)
[2023-09-17] MEDS ORDERED: ONDANSETRON 4 MG/2 ML VIAL IVP PRN (09:19)
[2023-09-17 10:36] LABS: Basophils # (A) 0.1 k/uL (0-0.2); Basophils % (A) 0 %; Eosinophils # (A) 0.2 k/uL (0-0.7); Eosinophils % (A) 1 %; HGB 15.1 gm/dL (13.0-17.5); Lymphocytes # (A) 0.7 k/uL (1.0-4.8); Lymphocytes % (A) 3 %; MCH 27.2 pg (25.0-35.0); MCHC 32.9 g/dL (31.0-37.0); MCV 82.5 fL (80.0-100.0); Monocytes # (A) 1.2 k/uL (0-1.0); Monocytes % (A) 5 %; Neutrophils % (A) 90 %; Platelet Count 216 k/uL (150-450); RBC 5.57 m/uL (4.30-5.90); RDW 15.5 % (11.5-15.5); WBC 22.3 k/uL (3.8-10.6)
--- NOTE | 2023-09-17 10:59 | CT ---
EXAMINATION TYPE: CT abdomen pelvis wo con CT DLP: 888.1 mGycm, Automated exposure control for dose reduction was used. DATE OF EXAM: 09/17/2023 5:30 AM COMPARISON: None CLINICAL INDICATION:Male, 78 years old with history of vomiting, transaminitis; N/V/D TECHNIQUE: Axial CT abdomen pelvis wo con;Sagittal and coronal reformats were created on a separate workstation. Contrast used: mL of , (none if empty) Oral contrast used: without Oral Contrast (none if empty) FINDINGS: LOWER CHEST: Heart is enlarged for size there is severe coronary artery calcifications, mitral valve annular cusp patient's. Aortic valve calcifications. Interstitial lung disease changes in the lung ba ses. Mild intralobular septal thickening. ABDOMEN LIVER: Unremarkable GALLBLADDER AND BILE DUCTS: There is dilation of the common bile duct with at least 4 stones in the c ommon bile duct largest measuring up to 8 mm. Additionally there there are stones in the gallbladder. Common bile duct measuring up to 14 mm. Mild wall thickening of the common duct with some early Fat stranding changes noted in the marie hepatis surrounding common bile duct. PANCREAS: Unremarkable. SPLEEN: Enlarged measuring up to 15.9 cm. ADRENAL GLANDS: Unremarkable. KIDNEYS AND URETERS: No evidence of hydronephrosis or renal calculus. The ureters are unremarkable. PELVIS BLADDER: Unremarkable REPRODUCTIVE: Unremarkable. ABDOMEN & PELVIS STOMACH AND BOWEL: No evidence of bowel obstruction. Scattered colonic diverticula. PERITONEUM/RETROPERITONEUM: No evidence of pneumoperitoneum or free fluid. VASCULATURE: No evidence of aortic aneurysm. MUSCULOSKELETAL: No acute osseous abnormalities, severe degeneration changes of the pubic symphysis. Multilevel degeneration changes of the spine. LYMPH NODES: No gross evidence for lymphadenopathy. SOFT TISSUE/ABDOMINAL WALL: Bilateral fat-containing inguinal hernias. IMPRESSION: 1. Choledocholithiasis with mild common bile duct wall thickening correlate for ascending cholangiti s. 2. Bilateral fat-containing inguinal hernias. 3. Colonic diverticulitis. 4. Cardiomegaly with pulmonary vascular congestion correlate with serum BNP. 5. Severe coronary artery and aortic valve calcifications. Findings communicated to ER at 7:00 AM.
[2023-09-17 11:03] LABS: ALT 347 U/L (4-49); AST 387 U/L (17-59); African American GFR (CKD) 32 (>60 ml/min/1.73 sqM); Albumin 3.2 g/dL (3.5-5.0); Alkaline Phosphatase 400 U/L (38-126); Anion Gap 6 mmol/L; Blood Urea Nitrogen 34 mg/dL (9-20); Calcium 8.8 mg/dL (8.4-10.2); Carbon Dioxide 25 mmol/L (22-30); Chloride 106 mmol/L (98-107); Glucose 200 mg/dL (74-99); Lipase 39 U/L (23-300); Non-African American GFR(CKD) 28 (>60 ml/min/1.73 sqM); Potassium 4.9 mmol/L (3.5-5.1); Sodium 137 mmol/L (137-145); Total Bilirubin 3.6 mg/dL (0.2-1.3); Total Protein 5.7 g/dL (6.3-8.2)
[2023-09-17] MEDS ORDERED: DEXTROSE 50% SYRINGE 50 ML IVP PRN ×2 (13:44)
[2023-09-17 14:18] LABS: Glucose,Whole Blood 181 mg/dL (70-110)
[2023-09-17] MEDS: INSULIN ASPART (NovoLOG) 100 UNIT/ML VIAL SQ SCH (14:19)
[2023-09-17 15:00] LABS: INR 1.7 (<1.2); Prothrombin Time 17.7 sec (10.0-12.5)
--- NOTE | 2023-09-17 15:24 | XR ---
EXAMINATION TYPE: XR chest 1V portable DATE OF EXAM: 09/17/2023 COMPARISON: 07/13/2022 INDICATION: CHF TECHNIQUE: Single frontal view of the chest is obtained. FINDINGS: The heart size is normal. The pulmonary vasculature is normal. Mild infiltrate remaining in the left lower lobe. Lungs are otherwise clear. Sternotomy wires are in the midline. IMPRESSION: 1. Mild left lower lobe infiltrate hyperechoic atelectasis or pneumonia.
[2023-09-17] MEDS: PANTOPRAZOLE 40 MG/10 ML VIAL IVP SCH (15:50)
[2023-09-17] MEDS ORDERED: HYDROmorphone 0.5 MG/0.5 ML SYRINGE IVP PRN (17:32)
[2023-09-17] MEDS: AMIODARONE 200 MG TAB PO SCH (18:00)
[2023-09-17 19:10] VITALS: BP 116/64; PULSE 60; RESP 16
[2023-09-17 19:44] LABS: Glucose,Whole Blood 184 mg/dL (70-110)
[2023-09-17] MEDS ORDERED: ATORVASTATIN 80 MG TAB PO SCH (21:00)
--- NOTE | 2023-09-17 22:54 | CONS ---
CONSULTATION REASON FOR CONSULTATION: Advice regarding CHF and other medical issues, requested by Surgery. HISTORY OF PRESENT ILLNESS: This is a 78-year-old gentleman with a past medical history of multiple medical problems including diabetes mellitus, atrial fibrillation, history of myocardial infarction, history of CAD, CAD stent; who was complaining of nausea, vomiting, and abdominal pain. The patient does not have any chest pain or shortness of breath. The patient was evaluated and showed possibly choledocholithiasis with mild thickening for a possibly ascending cholangitis also. Some pulmonary vascular congestion was also noted. Because of lack of candy separator enrobing, Surgery is planning the patient to be transferred to [facility] for further evaluation including ERCP and further evaluation. There is no history of any fever, rigors or chills. PAST MEDICAL HISTORY: Reviewed include diabetes mellitus, CAD, atrial fibrillation, CAD stent. HOME MEDICATIONS: Reviewed include Valium, Coumadin. Doses are not confirmed. Medications not confirmed yet, but however, doses are reviewed. ALLERGIES: Include Ceclor, ciprofloxacin, and rest of the allergies are noted. FAMILY HISTORY: No history of heart disease or strokes in the family. SOCIAL HISTORY: Previous history of smoking. REVIEW OF SYSTEMS: Fourteen-point review is negative except as mentioned earlier. PHYSICAL EXAMINATION: VITAL SIGNS: Pulse is 75, blood pressure 115/50, respirations 20. HEENT: Conjunctivae normal. CARDIOVASCULAR: S1, S2. RESPIRATION: Diminished breath sounds at the bases. Few rhonchi and crackles. ABDOMEN: Soft, minimal diffuse tenderness. No guarding. No rigidity. No mass palpable. No ascites. LEGS: No edema. NERVOUS SYSTEM: Nonfocal. SKIN: No rashes. JOINTS: No active deforming arthropathy. LABORATORY DATA: WBC 22.3. Other labs are noted. ASSESSMENT: 1. Acute choledocholithiasis with cholangitis. 2. Acute renal failure. 3. Elevated WBC. 4. Diabetes mellitus, type 2. 5. Coronary artery disease. 6. Atrial fibrillation. 7. Hypertension. 8. CAD stent. 9. Multiple complex medical issues. RECOMMENDATIONS AND DISCUSSION: This 78-year-old gentleman presented with multiple complex medical issues. We will monitor the patient closely. I would recommend initiate broad-spectrum IV antibiotics. Obtain cultures. Chest x-ray to evaluate for the fluid and electrolyte imbalance. Cautious hydration. DVT prophylaxis. We will continue to monitor with you and I would also recommend follow up with primary physician after discharge. ELICEOODL / IJN: [id number] /
[2023-09-18] MEDS ORDERED: LOSARTAN 50 MG TAB PO SCH (09:00)
[2023-09-18] MEDS ORDERED: CHLORTHALIDONE 25 MG TAB PO SCH (09:00)
== END 2023-09-17 19:47 | disposition other institution (70) ==
LOC: EC 00:01
DX: K80.50 Calculus of bile duct without cholangitis or cholecystitis without obstruction (principal); K40.20 Bilateral inguinal hernia, without obstruction or gangrene, not specified as recurrent; K57.32 Diverticulitis of large intestine without perforation or abscess without bleeding; K80.30 Calculus of bile duct with cholangitis, unspecified, without obstruction; Z87.891 Personal history of nicotine dependence; Z88.1 Allergy status to other antibiotic agents; Z88.2 Allergy status to sulfonamides; Z98.890 Other specified postprocedural states; Z95.1 Presence of aortocoronary bypass graft; Z95.5 Presence of coronary angioplasty implant and graft
CPT/HCPCS: 36415; 80053; 83690; 83735; 85025; 85610; 81001; 87040; 71045; 74018; 74176; 99291; 96365; 96366 ×6; 96375; 96361 ×5; J2543; C9113

== ENCOUNTER → 2023-11-17 | Outpatient (CLI) | payer MEDICARE ==
[2023-11-17 13:52] VITALS: RESP 16
--- NOTE | 2023-11-17 14:11 | P.PAINPG ---
PQRS Measure Charge Sheet Comment: HISTORY OF PRESENT ILLNESS: A 78 yr old wheelchair bound male w at side presents today w severe and chronic LBP > 5 yrs secondary to DDD, spondylosis and facet arthropathy without myelopathy for medication refills. Did not follow through w 2nd L TFESI L5-S1. Pt states pain level is provoked at 9 /10 in intensity, constant, localized in the lower lumbar spine, predominantly axial, throbbing in character w occasional shooting pain towards the L hip, buttock and LE. Pain is provoked by PT x 2 wks in Apr 2023 and standing/ walking for periods > 10 min. Pain is alleviated w physician guided stretches every morning since Apr 2023, heat, medications, manual massage, repositioning and rest. Oswestry axial pain score at 26. Interventional procedures include L TFESI L5-S1 x1 Medications include Tramadol, Tyl ES REVIEW OF ORGAN SYSTEMS: CONSTITUTIONAL: No fevers or chills. No recent weight loss. NEUROLOGICAL: + numbness and tingling along the distal extremities. No seizure disorders or headaches. MUSCULOSKELETAL: + pain PSYCHIATRIC: Denies current depression or suicidal thoughts. Physical Examinations : Constitutional : Cooperative , not in acute distress . Neurologic : Cranial nerve II to XII intact. No focal neurological deficits. Psychiatric : alert & oriented x 3. Matching mood & appropriate affect. Judgment & insight intact. Musculoskeletal : Cervical Spine Motor strength in the deltoid and biceps: Normal right side. Normal Left side Motor strength biceps and the wrist extensors: Normal right side . Normal left side Motor strength in the triceps muscle: Normal right side. Normal left side Deep tendon reflexes: Normal at the biceps. Normal at Brachioradialis. Normal at triceps Vertebral body tenderness to deep palpation over Cervical facet loading test: positive bilaterally Spurling test: positive bilaterally Neck distraction test: positive bilaterally Fabio sign: positive bilaterally Lumbar spine Motor strength lower extremities ,thigh and legs 5/5 Right side , 5/5 Left side Deep tendon reflexes : Normal Knee Jerk. Normal Ankle Jerk Vertebral body tenderness over L5 Lorenzo Test positive Lumbar facet Loading Test: positive Right / positive Left Range of motion of the lumbar spine Flexion 30 degrees, extension 10 degrees Straight Leg Raise test: Left/ Right positive at 20 degrees Erick test: positive right / positive left. Severe tenderness over the Sacroiliac joint on the Right / Left sides Gaenslen test: positive bilaterally Seated flexion test: positive bilaterally. Sacral spine : Severe tenderness over the Sacroiliac joint: right side / left side Range of motion: Flexion of the lumbar spine <60 degrees Range of motion: Extension of the lumbar spine <20 degrees Gaenslen's Test positive Erick test: positive right side / left side Thigh Thrust Test Sacral Thrust Test Imaging: MRI noncontrast of the lumbar spine from 04/29/2023 reviewed Assessment/ Plan : Lumbar DDD Recommendation of medication management and CHARLES L TFEIS L5-S1 #2. Risks, benefits of procedure discussed and pt verbalized understanding. Protocol for discontinuation/ continuation of medications humberto procedure discussed. Tylenol #3 #60 w 1 RF. UDS collected 11/17/23. Opiate/ narcotic agreement signed 09/01/23. Discontinue Tramadol, use side effects, adverse reactions, safe storage discussed. Pt acknowledged understanding. All questions answered. I have spent greater than 30 minutes on patient care today. Dr Urbina was available by phone for the evaluation of this patient. The time was used to review the medical records including relevant urine studies and Prescription history (MAPs), review of the available imaging, evaluation and examination of the patient, coordination of care with the medical staff and if applicable referring physicians, as well as creation of the medical record - Pain Location Bilateral Lower Back Non-Pharmacological Interventions: Sitting Pharmacological Interventions: Scheduled Medication, Topical Medication PQRS Narrative: Smoking Status Former smoker Hx Alcohol Use (MH) No Home Medications: Ambulatory Orders Aspirin EC [Ecotrin Low Dose] 81 mg PO DAILY 02/13/14 INSULIN ASPART (NovoLOG) [NovoLOG (formulary)] 5 units SQ AC-BID 02/13/14 Insulin Glargine [Lantus Vial] 30 units SQ W/SUPPER 02/13/14 Atorvastatin [Lipitor] 40 mg PO HS 06/30/17 Ergocalciferol [Vitamin D2 (1250 Mcg = 27042 Iu)] 1,250 mcg PO Q7D 07/21/22 Eucerin Cream 1 applic TOPICAL BID 07/21/22 Warfarin [Coumadin] 2.5 mg PO MOWEFR@209907/21/22 Warfarin [Coumadin] 3.75 mg PO SUTUTHSA@209907/21/22 Chlorthalidone [Hygroton] 25 mg PO DAILY 08/06/23 Insulin Glargine [Lantus Vial] 20 unit SQ W/BRKFST 08/06/23 Losartan [Cozaar] 50 mg PO DAILY 08/06/23 Amiodarone [Cordarone] 200 mg PO DAILY 09/17/23 Ammonium Lactate Cream [Lac-Hydrin 12% Cream] 1 applic TOPICAL DAILY PRN 09/17/23 Naloxone HCl [Narcan] 4 mg NASAL DIRECTED PRN 09/17/23 Triamcinolone 0.1% Cream [Kenalog 0.1% Cream] 1 applicatio TOPICAL BID 09/17/23 Acetaminophen-Codeine 300-30mg [Tylenol w/codeine #3] 1 tab PO BID PRN 30 Days #60 tablet 11/17/23 Controlled Substance Measures - Controlled Substance Measures Is patient prescribed a controlled substance at discharge?: Yes When asked, does pt state using other controlled substances?: No If prescribed controlled substance>3 days was MAPS reviewed?: Yes
[2023-11-17 14:12] VITALS: BP 145/74; PULSE 78
== END ==
LOC: PNWHC3 13:22
PROVIDERS: ATTEND Specialist
DX: M51.36 Other intervertebral disc degeneration, lumbar region (principal); Z87.891 Personal history of nicotine dependence; Z88.1 Allergy status to other antibiotic agents; Z88.2 Allergy status to sulfonamides; Z88.8 Allergy status to other drugs, medicaments and biological substances
CPT/HCPCS: 80307; 99212

== ENCOUNTER 2023-11-30 10:47 | Day surgery (SDC) | payer MEDICARE ==
[2023-11-26 16:07] VITALS: BMI 27.3
[2023-11-30] MEDS ORDERED: DEXAMETHASONE SOD PHOSPHATE 10 MG/ML 1 ML VIAL ONE (13:20)
[2023-11-30] MEDS ORDERED: IOPAMIDOL M200 10 ML VIAL ONE (13:20)
--- NOTE | 2024-01-25 18:19 | FL ---
EXAMINATION TYPE: FL guided pain mgmt statistic COMPARISON: Pre Operative Images if available both CT/MRI or plain film CLINICAL INDICATION: Male, 78 years old with history of LOW BACK PAIN LEFT TRANSFORAMINAL EPI; TECHNIQUE: FL guided pain mgmt statistic, multiple fluoroscopic images provided for procedure. Total fluoroscopy time: 15.1 seconds Total submitted images to PACS: 2 DAP: [id number] mGym2 Gycm2 uGym2 cGycm2 FINDINGS: Fluoroscopic images during injection for pain management demonstrate multilevel degeneration changes throughout the spine. No evidence for fracture. No acute process identified. IMPRESSION: 1. No evidence for intraoperative complication. 2. Please see the operative/procedural note for further details. [facility], , 01/25/2024 6:17 PM
== END 2023-11-30 13:55 | disposition home or self-care (01) ==
LOC: ORPAIN 10:47
PROVIDERS: ATTEND Anesthesiology
DX: M54.16 Radiculopathy, lumbar region (principal); E11.9 Type 2 diabetes mellitus without complications; I25.10 Atherosclerotic heart disease of native coronary artery without angina pectoris; Z88.1 Allergy status to other antibiotic agents; Z88.2 Allergy status to sulfonamides; Z88.3 Allergy status to other anti-infective agents; Z79.01 Long term (current) use of anticoagulants; Z79.82 Long term (current) use of aspirin; Z79.4 Long term (current) use of insulin; Z79.899 Other long term (current) drug therapy
CPT/HCPCS: 64483; 85610

== ENCOUNTER → 2024-01-05 | Outpatient (CLI) | payer MEDICARE ==
[2024-01-05 15:01] VITALS: BP 126/69; PULSE 65; RESP 16
--- NOTE | 2024-01-12 11:33 | P.PAINPG ---
PQRS Measure Charge Sheet Comment: HISTORY OF PRESENT ILLNESS: A 78 yr old wheelchair bound male w at side presents today w severe and chronic LBP > 5 yrs secondary to radiculopathy, spondylosis and facet arthropathy without myelopathy for medication refills and evaluation s/p L TFESI L5-S1 #2. Pt states he experienced 0% pain relief s/p procedure. Pt states pain level is provoked at 9 /10 in intensity, constant, localized in the lower lumbar spine, predominantly axial, throbbing in character w occasional shooting pain towards the L hip, buttock and LE. Pain is provoked by PT x 2 wks in Apr 2023 and standing/ walking for periods > 10 min. Pain is alleviated w physician guided stretches every morning since Apr 2023, heat, medications, manual massage, repositioning and rest. Interventional procedures include L TFESI L5-S1 x2 Medications include Tramadol, Tyl ES REVIEW OF ORGAN SYSTEMS: CONSTITUTIONAL: No fevers or chills. No recent weight loss. NEUROLOGICAL: + numbness and tingling along the distal extremities. No seizure disorders or headaches. MUSCULOSKELETAL: + pain PSYCHIATRIC: Denies current depression or suicidal thoughts. Physical Examinations : Constitutional : Cooperative , not in acute distress . Neurologic : Cranial nerve II to XII intact. No focal neurological deficits. Psychiatric : alert & oriented x 3. Matching mood & appropriate affect. Judgment & insight intact. Musculoskeletal : Cervical Spine Motor strength in the deltoid and biceps: Normal right side. Normal Left side Motor strength biceps and the wrist extensors: Normal right side . Normal left side Motor strength in the triceps muscle: Normal right side. Normal left side Deep tendon reflexes: Normal at the biceps. Normal at Brachioradialis. Normal at triceps Vertebral body tenderness to deep palpation over Cervical facet loading test: positive bilaterally Spurling test: positive bilaterally Neck distraction test: positive bilaterally Fabio sign: positive bilaterally Lumbar spine Motor strength lower extremities ,thigh and legs 5/5 Right side , 5/5 Left side Deep tendon reflexes : Normal Knee Jerk. Normal Ankle Jerk Vertebral body tenderness over L5 Lorenzo Test positive Lumbar facet Loading Test: positive Right / positive Left L4-L5, L5-S1 Range of motion of the lumbar spine Flexion 30 degrees, extension 10 degrees Straight Leg Raise test: Left/ Right positive at 20 degrees Erick test: positive right / positive left. Severe tenderness over the Sacroiliac joint on the Right / Left sides Yovannylen test: positive bilaterally Seated flexion test: positive bilaterally. Sacral spine : Severe tenderness over the Sacroiliac joint: right side / left side Range of motion: Flexion of the lumbar spine <60 degrees Range of motion: Extension of the lumbar spine <20 degrees Gaenslen's Test positive Erick test: positive right side / left side Thigh Thrust Test Sacral Thrust Test Imaging: MRI noncontrast of the lumbar spine from 04/29/2023 reviewed Assessment/ Plan : Lumbar radiculopathy Recommendation of medication management and BL MBB L4-L5/ L5-S1 #1. Risks, benefits of procedure discussed and pt verbalized understanding. Protocol for discontinuation/ continuation of medications humberto procedure discussed. Minimal anesthesia including Fentanyl and Versed if clinically indicated. Discontinue Tyl #3 and substitute w [place] 7.5/325mg #60 w 2 RF. UDS from 11/17/23 reviewed and consistent. New opiate/ narcotic agreement signed 01/05/24. Use side effects, adverse reactions, safe storage discussed. Pt acknowledged understanding. All questions answered. I have spent greater than 30 minutes on patient care today. Dr Urbina was available by phone for the evaluation of this patient. The time was used to review the medical records including relevant urine studies and Prescription history (MAPs), review of the available imaging, evaluation and examination of the patient, coordination of care with the medical staff and if applicable re [facility] physicians, as well as creation of the medical record PQRS Narrative: Smoking Status Former smoker Hx Alcohol Use (MH) No Home Medications: Ambulatory Orders Aspirin EC [Ecotrin Low Dose] 81 mg PO QAM 02/13/14 INSULIN ASPART (NovoLOG) [NovoLOG (formulary)] 5 units SQ AC-BID 02/13/14 Insulin Glargine [Lantus Vial] 30 units SQ W/SUPPER 02/13/14 Atorvastatin [Lipitor] 40 mg PO HS 06/30/17 Ergocalciferol [Vitamin D2 (1250 Mcg = 14464 Iu)] 1,250 mcg PO Q7D 07/21/22 Warfarin [Coumadin] 2.5 mg PO MOWEFR@209907/21/22 Warfarin [Coumadin] 3.75 mg PO SUTUTHSA@209907/21/22 Chlorthalidone [Hygroton] 25 mg PO DAILY 08/06/23 Insulin Glargine [Lantus Vial] 20 unit SQ W/BRKFST 08/06/23 Ammonium Lactate Cream [Lac-Hydrin 12% Cream] 1 applic TOPICAL DAILY PRN 09/17/23 Naloxone HCl [Narcan] 4 mg NASAL DIRECTED PRN 09/17/23 Triamcinolone 0.1% Cream [Kenalog 0.1% Cream] 1 applicatio TOPICAL BID 09/17/23 Metoprolol Succinate (ER) [Toprol Xl] 25 mg PO QAM 11/26/23 hydrOXYzine HCL [Atarax] 25 mg PO HS PRN 11/26/23 HYDROcodone/APAP 7.5-325MG [[place] 7.5-325] 1 tab PO BID PRN 30 Days #60 tab 01/05/24 HYDROcodone/APAP 7.5-325MG [[place] 7.5-325] 1 tab PO BID PRN 30 Days #60 tab 01/05/24 HYDROcodone/APAP 7.5-325MG [[place] 7.5-325] 1 tab PO BID PRN 30 Days #60 tab 01/05/24 Controlled Substance Measures - Controlled Substance Measures Is patient prescribed a controlled substance at discharge?: Yes When asked, does pt state using other controlled substances?: Yes If prescribed controlled substance>3 days was MAPS reviewed?: Yes If Rx opioid, was Start Talking consent form obtained?: Yes Was information provided regarding opioid addiction?: Yes
== END ==
LOC: PNWHC3 12:42
PROVIDERS: ATTEND Specialist
DX: M54.16 Radiculopathy, lumbar region
CPT/HCPCS: 99211

== ENCOUNTER 2024-01-28 10:44 | Day surgery (SDC) | payer MEDICARE ==
[2024-01-24 15:59] VITALS: BMI 27.3
[2024-01-28 11:20] VITALS: TEMP 97
[2024-01-28 11:25] LABS: Glucose,Whole Blood 134 mg/dL (70-110)
[2024-01-28] MEDS: LACTATED RINGERS 1,000 ML IV SCH (11:29)
[2024-01-28] MEDS: IV FLUID CONTINUATION 1,000 ML IV ONE ×2 (11:30→12:07)
[2024-01-28] MEDS ORDERED: MIDAZOLAM 2 MG/2 ML VIAL ONE (11:38)
[2024-01-28] MEDS ORDERED: ROPIVACAINE 5MG/ML 20ML VIAL ONE (11:38)
--- NOTE | 2024-01-28 11:53 | P.PCN ---
Date of Procedure: 01/28/24 Description of Procedure: Pre- and Post-operative Diagnosis: Lumbar facet arthropathy, and lumbar spondylosis without myelopathy. Procedure: #1 Diagnostic Medial Branch Block at bilateral Lumbar 4/5 and #1 diagnostic dorsal ramus block at Lumbar 5/ sacral ala levels (total 4 levels) Surgeon: Rick Green Anesthesia: Local: 1% Lidocaine, IV sedation : Versed 1 mg Sedation supervision timings: [id number]. Complications: None EBL: None Specimen removed: None Fluoroscopic image: Saved to patient electronic medical records. Indications for Procedure: The patient is well known to pain clinic for his chronic low back pain management. The lumbar facet loading test was positive with a clinical diagnosis of lumbar facet arthropathy. Failed with conservative therapy. Came here for interventional help for better pain relief. Procedure and Findings: The patient was seen and examined. The written informed consent was obtained after explaining the risks, benefits and alternatives of the procedure to the patient. The patient was brought to the procedure room and was placed in the prone position on the operating table table. A pillow was placed under the abdomen to reduce lumbar lordosis. Standard anesthesia monitoring was done through out the procedure. The skin preparation was done with ChloraPrep, and draping was done in usual sterile fashion. Sterile technique was observed throughout the procedure. Under fluoroscopic guidance, right the Lumbar 4, 5 and Sacral ala levels were identified in the AP view. For lumbar L4, and L5 levels the targeting area of superior articular process, and close to the most medial and superior aspect of transverse process identified, marked. 1ml of 1% Lidocaine was used with a 25 gauge needle to achieve adequate local anesthesia of the skin and subcutaneous tissue at each level. A 25 gauge 3.5 inch spinal needle was placed and advanced targeting area which was close to the most medial and superior aspect of the transverse process. For Lumbar 5/ sacral ala level, fluoroscope was used in the anteroposterior view, and the needle tip was placed at the superior and most medial part of sacral ala close to the superior articular process. A bony contact was obtained and needle tip position was confirmed at anteroposterior view. No paresthesia was noted. A negative aspiration was confirmed. 0.5 ml solution per level was injected, the block solution containing 4 ml of 0.5% r opivacaine preservative-free solution. The needles were removed intact. Entire procedure repeated on the left side. Lumbar area was cleaned and bandages were applied. Disposition : The patient tolerated the procedure very well. The patient was transferred to the recovery room and remained stable until discharged home. The patient was given detailed discharge instructions for infection, bleeding, and increased pain at the injection site, and was advised to seek immediate medical attention should significant side effects develop. The patient will be scheduled with Pain Clinic within 2-4 weeks for repeat procedure if it's helpful.
[2024-01-28 12:10] VITALS: RESP 16
[2024-01-28 12:15] VITALS: BP 118/72; PULSE 61
--- NOTE | 2024-01-28 12:42 | FL ---
EXAMINATION TYPE: FL guided pain mgmt statistic DATE OF EXAM: 01/28/2024 11:55 AM COMPARISON: Pre Operative Images if available both CT/MRI or plain film CLINICAL INDICATION: Male, 78 years old with history of M47.816; TECHNIQUE: FL guided pain mgmt statistic, multiple fluoroscopic images provided for procedure. Total fluoroscopy time: 5 seconds Total submitted images to PACS: 1 DAP: 0.05778 mGym2 Gycm2 uGym2 cGycm2 or equivalent. FINDINGS: Fluoroscopic images during injection for pain management demonstrate multilevel degeneration changes throughout the spine. No evidence for fracture. No acute process identified. IMPRESSION: 1. No evidence for intraoperative complication. 2. Please see the operative/procedural note for further details. [facility], , 01/28/2024 12:40 PM
== END 2024-01-28 12:33 | disposition home or self-care (01) ==
LOC: ORPAIN 10:44
DX: M47.816 Spondylosis without myelopathy or radiculopathy, lumbar region
CPT/HCPCS: 99152

== ENCOUNTER → 2024-02-10 | Outpatient (CLI) | payer MEDICARE ==
[2024-02-10 12:06] VITALS: PULSE 49; RESP 16; TEMP 97.5
--- NOTE | 2024-02-10 13:58 | P.PAINPG ---
PQRS Measure Charge Sheet Comment: HISTORY OF PRESENT ILLNESS: A 78 yr old wheelchair bound male w at side presents today w severe and chronic LBP > 5 yrs secondary to radiculopathy, spondylosis and facet arthropathy without myelopathy for medication refills and evaluation s/p BL MBB L4-L5/ L5-S1 #1. Pt states he experienced % pain relief x days s/p procedure. Pt states pain level is provoked at 9 /10 in intensity, constant, localized in the lower lumbar spine, predominantly axial, throbbing in character w occasional shooting pain towards the L hip, buttock and LE. Pain is provoked by PT x 2 wks in Apr 2023 and standing/ walking for periods > 10 min. Pain is alleviated w physician guided stretches every morning since Apr 2023, heat, medications, manual massage, repositioning and rest. Interventional procedures include L TFESI L5-S1 x2, BL MBB L3-L5 x1 Medications include Tramadol, Tyl ES REVIEW OF ORGAN SYSTEMS: CONSTITUTIONAL: No fevers or chills. No recent weight loss. NEUROLOGICAL: + numbness and tingling along the distal extremities. No seizure disorders or headaches. MUSCULOSKELETAL: + pain PSYCHIATRIC: Denies current depression or suicidal thoughts. Physical Examinations : Constitutional : Cooperative , not in acute distress . Neurologic : Cranial nerve II to XII intact. No focal neurological deficits. Psychiatric : alert & oriented x 3. Matching mood & appropriate affect. Judgment & insight intact. Musculoskeletal : Cervical Spine Motor strength in the deltoid and biceps: Normal right side. Normal Left side Motor strength biceps and the wrist extensors: Normal right side . Normal left side Motor strength in the triceps muscle: Normal right side. Normal left side Deep tendon reflexes: Normal at the biceps. Normal at Brachioradialis. Normal at triceps Vertebral body tenderness to deep palpation over Cervical facet loading test: positive bilaterally Spurling test: positive bilaterally Neck distraction test: positive bilaterally Fabio sign: positive bilaterally Lumbar spine Motor strength lower extremities ,thigh and legs 5/5 Right side , 5/5 Left side Deep tendon reflexes : Normal Knee Jerk. Normal Ankle Jerk Vertebral body tenderness over L5 Lorenzo Test positive Lumbar facet Loading Test: positive Right / positive Left L4-L5, L5-S1 Range of motion of the lumbar spine Flexion 30 degrees, extension 10 degrees Straight Leg Raise test: Left/ Right positive at 20 degrees Erick test: positive right / positive left. Severe tenderness over the Sacroiliac joint on the Right / Left sides Gaenslen test: positive bilaterally Seated flexion test: positive bilaterally. Sacral spine : Severe tenderness over the Sacroiliac joint: right side / left side Range of motion: Flexion of the lumbar spine <60 degrees Range of motion: Extension of the lumbar spine <20 degrees Gaenslen's Test positive Erick test: positive right side / left side Thigh Thrust Test Sacral Thrust Test Imaging: MRI noncontrast of the lumbar spine from 04/29/2023 reviewed Assessment/ Plan : Lumbar radiculopathy Recommendation of medication management and BL MBB L4-L5/ L5-S1 #2. Risks, benefits of procedure discussed and pt verbalized understanding. Protocol for discontinuation/ continuation of medications humberto procedure discussed. Minimal anesthesia including Fentanyl and Versed if clinically indicated. [place] 7.5/325mg #60 w 2 RF. UDS from 11/17/23 reviewed and consistent. New opiate/ narcotic agreement signed 01/05/24. Use side effects, adverse reactions, safe storage discussed. Pt acknowledged understanding. All questions answered. I have spent greater than 30 minutes on patient care today. Dr Urbina was available by phone for the evaluation of this patient. The time was used to review the medical records including relevant urine studies and Prescription history (MAPs), review of the available imaging, evaluation and examination of the patient, coordination of care with the medical staff and if applicable referring physicians, as well as creation of the medical record PQRS Narrative: Smoking Status Former smoker Hx Alcohol Use (MH) No Home Medications: Ambulatory Orders Aspirin EC [Ecotrin Low Dose] 81 mg PO QAM 02/13/14 INSULIN ASPART (NovoLOG) [NovoLOG (formulary)] 0 units SQ AC-BID PRN 02/13/14 Insulin Glargine [Lantus Vial] 20 units SQ W/SUPPER 02/13/14 Atorvastatin [Lipitor] 40 mg PO HS 06/30/17 Ergocalciferol [Vitamin D2 (1250 Mcg = 45451 Iu)] 1,250 mcg PO Q7D 07/21/22 Warfarin [Coumadin] 2.5 mg PO MOWEFR@209907/21/22 Warfarin [Coumadin] 3.75 mg PO SUTUTHSA@209907/21/22 Chlorthalidone [Hygroton] 25 mg PO DAILY 08/06/23 Insulin Glargine [Lantus Vial] 25 unit SQ W/BRKFST 08/06/23 Ammonium Lactate Cream [Lac-Hydrin 12% Cream] 1 applic TOPICAL DAILY PRN 09/17/23 Naloxone HCl [Narcan] 4 mg NASAL DIRECTED PRN 09/17/23 Triamcinolone 0.1% Cream [Kenalog 0.1% Cream] 1 applicatio TOPICAL BID 09/17/23 Metoprolol Succinate (ER) [Toprol Xl] 25 mg PO QAM 11/26/23 hydrOXYzine HCL [Atarax] 25 mg PO HS PRN 11/26/23 HYDROcodone/APAP 7.5-325MG [[place] 7.5-325] 1 tab PO BID PRN 30 Days #60 tab 01/05/24 Controlled Substance Measures - Controlled Substance Measures Is patient prescribed a controlled substance at discharge?: Yes When asked, does pt state using other controlled substances?: No If prescribed controlled substance>3 days was MAPS reviewed?: Yes
== END ==
LOC: PNWHC3 11:01
PROVIDERS: ATTEND Anesthesiology
CPT/HCPCS: 99211

== ENCOUNTER 2024-02-24 16:58 | Emergency (ER) | payer MEDICARE ==
[2024-02-24 17:06] LABS: Glucose,Whole Blood 310 mg/dL (70-110)
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
[2024-02-24 20:02] VITALS: BP 43/21; PULSE 50; RESP 16
== END 2024-02-24 19:10 | disposition expired ==
LOC: EC 16:58
DX: I46.9 Cardiac arrest, cause unspecified (principal); I10 Essential (primary) hypertension; I25.10 Atherosclerotic heart disease of native coronary artery without angina pectoris; I48.91 Unspecified atrial fibrillation; Z87.891 Personal history of nicotine dependence; Z79.01 Long term (current) use of anticoagulants; Z79.899 Other long term (current) drug therapy; Z88.1 Allergy status to other antibiotic agents; Z88.2 Allergy status to sulfonamides; Z88.8 Allergy status to other drugs, medicaments and biological substances; Z95.1 Presence of aortocoronary bypass graft; Z95.5 Presence of coronary angioplasty implant and graft
CPT/HCPCS: 31500; 36415; 92950; 99291